=== PATIENT | female | born 1930 | race Caucasian/White ===

== ENCOUNTER 2017-05-15 14:56 | Inpatient (IN) | payer OTHER, MEDICARE ==
[2017-05-15] MEDS: ONDANSETRON 4 MG INJ IV (19:50)
[2017-05-15] MEDS: SOD CHLORIDE 0.9% 1,000 ML IV (19:50)
[2017-05-15 20:05] LABS: ADD MAN DIFF? NO
[2017-05-15 20:07] LABS: WHITE BLOOD COUNT 11.3 10^3/ul (4.8-10.8)
[2017-05-15 20:07] LABS: BASOPHIL # 0.1 10^3/ul (0.0-0.1); BASOPHILS % 1.2 % (0.0-2.0); EOSINOPHILS # 0.2 10^3/ul (0.0-0.5); EOSINOPHILS % 1.8 % (0.0-7.0); HEMATOCRIT 28.3 % (37.0-47.0); HEMOGLOBIN 9.1 g/dl (12.0-16.0); LYMPHOCYTES # 1.3 10^3/ul (0.8-2.9); LYMPHOCYTES % 11.2 % (15.0-51.0); MEAN CORPUSCULAR HEMOGLOBIN 28.1 pg (29.0-33.0); MEAN CORPUSCULAR HGB CONC 32.2 g/dl (32.0-37.0); MEAN CORPUSCULAR VOLUME 87.3 fl (82.0-101.0); MEAN PLATELET VOLUME 10.2 fl (7.4-10.4); MONOCYTE # 0.9 10^3/ul (0.3-0.9); MONOCYTES % 7.6 % (0.0-11.0); NEUTROPHIL # 8.8 10^3/ul (1.6-7.5); NEUTROPHILS % 77.7 % (39.0-77.0); PLATELET COUNT 509 10^3/UL (140-415); RED BLOOD COUNT 3.24 10^6/ul (4.20-5.40); RED CELL DISTRIBUTION WIDTH 14.5 % (11.5-14.5)
[2017-05-15 20:24] LABS: ALANINE AMINOTRANSFERASE 15 IU/L (13-69); ALBUMIN 3.8 g/dl (3.3-4.9); ALKALINE PHOSPHATASE 112 IU/L (42-121); ANION GAP 19 (8-16); ASPARTATE AMINO TRANSFERASE 12 IU/L (15-46); BLOOD UREA NITROGEN 47 mg/dl (7-20); CALCIUM 9.9 mg/dl (8.4-10.2); CARBON DIOXIDE 21 mmol/L (21-31); CHLORIDE 107 mmol/L (97-110); CREATININE 2.38 mg/dl (0.44-1.00); GLUCOSE 106 mg/dl (70-220); LIPASE 121 U/L (23-300); POTASSIUM 5.6 mmol/L (3.5-5.1); SODIUM 141 mmol/L (135-144)
[2017-05-15 20:34] LABS: LACTIC ACID 1.4 mmol/L (0.5-2.0)
[2017-05-16] MEDS ORDERED: ONDANSETRON 4 MG INJ IV
[2017-05-16] MEDS ORDERED: ACETAMINOPHEN 325 MG TAB PO
[2017-05-16] MEDS ORDERED: NACL 0.9% 3 ML SYG IV (00:30)
[2017-05-16] MEDS: SOD CHLORIDE 0.9% 1,000 ML IV ×3 (01:00→20:59)
[2017-05-16] MEDS: NA POLYST SULFON 15 GM/60 ML BTL PO (01:01)
[2017-05-16 02:56] LABS: OSMOLALITY 301 mOsm/kg (280-295)
[2017-05-16 03:15] LABS: SODIUM,URINE RANDOM 106 mmol/L (30-90)
[2017-05-16 04:02] LABS: OSMOLALITY,URINE 330 mOsm/kg (250-1200)
[2017-05-16] MEDS: ONDANSETRON 4 MG INJ IV (04:35)
[2017-05-16 06:11] LABS: ADD MAN DIFF? NO
[2017-05-16 06:13] LABS: BASOPHIL # 0.2 10^3/ul (0.0-0.1); BASOPHILS % 1.4 % (0.0-2.0); EOSINOPHILS # 0.3 10^3/ul (0.0-0.5); EOSINOPHILS % 2.4 % (0.0-7.0); HEMATOCRIT 26.9 % (37.0-47.0); HEMOGLOBIN 8.5 g/dl (12.0-16.0); LYMPHOCYTES # 1.1 10^3/ul (0.8-2.9); LYMPHOCYTES % 10.4 % (15.0-51.0); MEAN CORPUSCULAR HGB CONC 31.6 g/dl (32.0-37.0); MEAN CORPUSCULAR VOLUME 88.5 fl (82.0-101.0); MEAN PLATELET VOLUME 10.2 fl (7.4-10.4); MONOCYTE # 0.9 10^3/ul (0.3-0.9); MONOCYTES % 8.7 % (0.0-11.0); NEUTROPHIL # 8.2 10^3/ul (1.6-7.5); NEUTROPHILS % 76.7 % (39.0-77.0); PLATELET COUNT 517 10^3/UL (140-415); RED BLOOD COUNT 3.04 10^6/ul (4.20-5.40); RED CELL DISTRIBUTION WIDTH 14.7 % (11.5-14.5)
[2017-05-16 06:13] LABS: WHITE BLOOD COUNT 10.6 10^3/ul (4.8-10.8)
[2017-05-16 06:50] LABS: ALANINE AMINOTRANSFERASE 19 IU/L (13-69); ALBUMIN 3.4 g/dl (3.3-4.9); ALBUMIN/GLOBULIN RATIO 0.91; ALKALINE PHOSPHATASE 93 IU/L (42-121); ANION GAP 16 (8-16); ASPARTATE AMINO TRANSFERASE 14 IU/L (15-46); BLOOD UREA NITROGEN 51 mg/dl (7-20); CALCIUM 9.5 mg/dl (8.4-10.2); CARBON DIOXIDE 23 mmol/L (21-31); CHLORIDE 113 mmol/L (97-110); CHOL/HDL RATIO 3.2 RATIO; CHOLESTEROL 100 mg/dl (100-200); CREATININE 2.64 mg/dl (0.44-1.00); GLUCOSE 123 mg/dl (70-220); HDL CHOLESTEROL 31 mg/dl (33-92); LDL CHOLESTEROL,CALCULATED 39 mg/dl; MAGNESIUM 1.5 mg/dl (1.7-2.5); POTASSIUM 4.6 mmol/L (3.5-5.1); SODIUM 147 mmol/L (135-144); TOTAL PROTEIN 7.1 g/dl (6.1-8.1); TRIGLYCERIDES 149 mg/dl (0-149)
[2017-05-16 07:23] LABS: IRON 22 ug/dl (35-150)
[2017-05-16 07:33] LABS: % IRON SATURATION 9 % SAT (22-52); TOTAL IRON BINDING CAPACITY 242 ug/dl (241-421)
[2017-05-16] MEDS: INSULIN ASPART [NOVOLOG] 3 ML PEN SC ×4 (08:15→21:00)
[2017-05-16] MEDS: LORATADINE 10 MG TAB PO (09:00)
[2017-05-16] MEDS: DULOXETINE 30 MG CAP DR PO ×2 (09:22→20:59)
[2017-05-16] MEDS: ATENOLOL 25 MG TAB PO (09:26)
[2017-05-16] MEDS: PANTOPRAZOLE (EC) 40 MG TAB PO (09:29)
[2017-05-16] MEDS: PREGABALIN 25 MG CAP PO ×2 (09:29→20:59)
[2017-05-16 09:42] LABS: HEMOGLOBIN A1C 5.8 % (0-5.9)
[2017-05-16] MEDS: MAGNESIUM OXIDE 400 MG TAB PO ×2 (13:00→20:59)
[2017-05-16] MEDS ORDERED: DIGOXIN 0.125 MG TAB PO (13:00)
[2017-05-16] MEDS: LACTULOSE 30ML CUP PO ×3 (13:01→20:59)
[2017-05-16] MEDS: ATORVASTATIN 10 MG TAB PO (20:59)
[2017-05-17] MEDS: ACCU-CHEK XX (02:00)
[2017-05-17] MEDS: LACTULOSE 30ML CUP PO ×6 (02:00→20:50)
[2017-05-17 06:25] LABS: ADD MAN DIFF? NO
[2017-05-17 06:30] LABS: BASOPHIL # 0.1 10^3/ul (0.0-0.1); BASOPHILS % 1.3 % (0.0-2.0); EOSINOPHILS # 0.2 10^3/ul (0.0-0.5); EOSINOPHILS % 2.3 % (0.0-7.0); HEMATOCRIT 25.4 % (37.0-47.0); HEMOGLOBIN 7.8 g/dl (12.0-16.0); LYMPHOCYTES # 1.3 10^3/ul (0.8-2.9); LYMPHOCYTES % 14.3 % (15.0-51.0); MEAN CORPUSCULAR HEMOGLOBIN 27.5 pg (29.0-33.0); MEAN CORPUSCULAR HGB CONC 30.7 g/dl (32.0-37.0); MEAN CORPUSCULAR VOLUME 89.4 fl (82.0-101.0); MEAN PLATELET VOLUME 10.2 fl (7.4-10.4); MONOCYTES % 10.3 % (0.0-11.0); NEUTROPHIL # 6.6 10^3/ul (1.6-7.5); NEUTROPHILS % 71.5 % (39.0-77.0); PLATELET COUNT 449 10^3/UL (140-415); RED BLOOD COUNT 2.84 10^6/ul (4.20-5.40); RED CELL DISTRIBUTION WIDTH 15.2 % (11.5-14.5)
[2017-05-17 06:30] LABS: WHITE BLOOD COUNT 9.2 10^3/ul (4.8-10.8)
[2017-05-17 07:03] LABS: ANION GAP 13 (8-16); BLOOD UREA NITROGEN 35 mg/dl (7-20); CALCIUM 8.8 mg/dl (8.4-10.2); CARBON DIOXIDE 20 mmol/L (21-31); CHLORIDE 114 mmol/L (97-110); CREATININE 2.04 mg/dl (0.44-1.00); GLUCOSE 127 mg/dl (70-220); POTASSIUM 3.9 mmol/L (3.5-5.1); SODIUM 143 mmol/L (135-144)
[2017-05-17 07:09] LABS: T4 (THYROXINE) 7.3 ug/dl (5.5-11.0)
[2017-05-17 07:09] LABS: FREE T3 2.65 pg/ml (2.77-5.27); INR 1.11; PROTIME 14.5 Sec (11.9-14.9); PT RATIO 1.1
[2017-05-17 07:21] LABS: FREE T4 (FREE THYROXINE) 1.29 ng/dl (0.85-1.93)
[2017-05-17] MEDS: PANTOPRAZOLE (EC) 40 MG TAB PO ×2 (08:00→20:51)
[2017-05-17] MEDS: INSULIN ASPART [NOVOLOG] 3 ML PEN SC ×4 (08:15→20:57)
[2017-05-17] MEDS: DULOXETINE 30 MG CAP DR PO ×2 (08:46→20:50)
[2017-05-17] MEDS: LORATADINE 10 MG TAB PO (08:46)
[2017-05-17] MEDS: PREGABALIN 25 MG CAP PO ×2 (08:46→20:53)
[2017-05-17] MEDS: MAGNESIUM OXIDE 400 MG TAB PO ×2 (08:47→20:51)
[2017-05-17] MEDS: SOD CHLORIDE 0.9% 1,000 ML IV ×2 (09:34→20:21)
[2017-05-17 15:26] LABS: IMMEDIATE SPIN CROSSMATCH 1 3
[2017-05-17 16:31] LABS: CREATININE, RANDOM URINE 71 mg/dL (20-320); MICROALBUMIN 78.3 mg/dL; MICROALBUMIN/CREATININE RATIO 1103 (<30)
[2017-05-17 20:37] LABS: ADD MAN DIFF? NO
[2017-05-17 20:38] LABS: BASOPHIL # 0.1 10^3/ul (0.0-0.1); BASOPHILS % 1.3 % (0.0-2.0); EOSINOPHILS # 0.2 10^3/ul (0.0-0.5); EOSINOPHILS % 1.7 % (0.0-7.0); HEMATOCRIT 29.4 % (37.0-47.0); HEMOGLOBIN 9.4 g/dl (12.0-16.0); LYMPHOCYTES # 0.8 10^3/ul (0.8-2.9); LYMPHOCYTES % 8.4 % (15.0-51.0); MEAN CORPUSCULAR HEMOGLOBIN 28.4 pg (29.0-33.0); MEAN CORPUSCULAR VOLUME 88.8 fl (82.0-101.0); MEAN PLATELET VOLUME 9.9 fl (7.4-10.4); MONOCYTE # 0.9 10^3/ul (0.3-0.9); MONOCYTES % 9.4 % (0.0-11.0); PLATELET COUNT 466 10^3/UL (140-415); RED BLOOD COUNT 3.31 10^6/ul (4.20-5.40); RED CELL DISTRIBUTION WIDTH 14.9 % (11.5-14.5)
[2017-05-17 20:38] LABS: WHITE BLOOD COUNT 10.1 10^3/ul (4.8-10.8)
[2017-05-17] MEDS: ATORVASTATIN 10 MG TAB PO (20:50)
[2017-05-18] MEDS: LACTULOSE 30ML CUP PO ×6 (01:00→21:00)
[2017-05-18] MEDS: ACCU-CHEK XX (02:00)
[2017-05-18 05:46] LABS: ADD MAN DIFF? NO
[2017-05-18 05:56] LABS: BASOPHIL # 0.1 10^3/ul (0.0-0.1); BASOPHILS % 1.3 % (0.0-2.0); EOSINOPHILS # 0.2 10^3/ul (0.0-0.5); EOSINOPHILS % 1.9 % (0.0-7.0); HEMATOCRIT 26.8 % (37.0-47.0); HEMOGLOBIN 8.5 g/dl (12.0-16.0); LYMPHOCYTES % 9.7 % (15.0-51.0); MEAN CORPUSCULAR HEMOGLOBIN 28.1 pg (29.0-33.0); MEAN CORPUSCULAR HGB CONC 31.7 g/dl (32.0-37.0); MEAN CORPUSCULAR VOLUME 88.7 fl (82.0-101.0); MONOCYTE # 0.9 10^3/ul (0.3-0.9); MONOCYTES % 9.6 % (0.0-11.0); NEUTROPHIL # 7.5 10^3/ul (1.6-7.5); PLATELET COUNT 438 10^3/UL (140-415); RED BLOOD COUNT 3.02 10^6/ul (4.20-5.40); RED CELL DISTRIBUTION WIDTH 15.1 % (11.5-14.5)
[2017-05-18 05:56] LABS: WHITE BLOOD COUNT 9.8 10^3/ul (4.8-10.8)
[2017-05-18 06:26] LABS: MAGNESIUM 1.5 mg/dl (1.7-2.5)
[2017-05-18 06:27] LABS: ANION GAP 10 (8-16); BLOOD UREA NITROGEN 23 mg/dl (7-20); CALCIUM 8.6 mg/dl (8.4-10.2); CARBON DIOXIDE 23 mmol/L (21-31); CHLORIDE 116 mmol/L (97-110); CREATININE 1.36 mg/dl (0.44-1.00); GLUCOSE 119 mg/dl (70-220); POTASSIUM 4.3 mmol/L (3.5-5.1); SODIUM 145 mmol/L (135-144)
[2017-05-18] MEDS: INSULIN ASPART [NOVOLOG] 3 ML PEN SC ×4 (08:15→21:00)
[2017-05-18] MEDS: DULOXETINE 30 MG CAP DR PO ×2 (08:47→21:05)
[2017-05-18] MEDS: PANTOPRAZOLE (EC) 40 MG TAB PO ×2 (08:47→21:05)
[2017-05-18] MEDS: MAGNESIUM OXIDE 400 MG TAB PO ×2 (08:47→21:06)
[2017-05-18] MEDS: PREGABALIN 25 MG CAP PO ×2 (08:47→21:06)
[2017-05-18] MEDS: LORATADINE 10 MG TAB PO ×2 (08:48→12:25)
[2017-05-18] MEDS: SOD FERRIC GLUC COMPLX 125 MG in SOD CHLORIDE 0.9% 100 ML IVPB (10:17)
[2017-05-18 11:36] LABS: ADD UMIC YES; UR ASCORBIC ACID NEGATIVE (NEGATIVE); UR BACTERIA FEW /HPF (NONE SEEN); UR BILIRUBIN (Dip) NEGATIVE (NEGATIVE); UR BLOOD (Dip) 3+ mg/dL (NEGATIVE); UR CLARITY TURBID (CLEAR); UR COLOR YELLOW (YELLOW); UR GLUCOSE (Dip) NEGATIVE (NEGATIVE); UR KETONES (Dip) NEGATIVE (NEGATIVE); UR LEUKOCYTE ESTERASE (Dip) 3+ Leu/ul (NEGATIVE); UR NITRITE (Dip) NEGATIVE (NEGATIVE); UR NONSQUAMOUS EPITHELIAL CELL 1 /HPF (NONE SEEN); UR RBC > 182 /HPF (0-5); UR SPECIFIC GRAVITY (Dip) 1.008 (1.003-1.030); UR TOTAL PROTEIN (Dip) 2+ mg/dl (NEGATIVE); UR UROBILINOGEN (Dip) NEGATIVE (NEGATIVE); UR WBC > 182 /HPF (0-5)
[2017-05-18] MEDS: ATENOLOL 25 MG TAB PO (12:28)
[2017-05-18] MEDS: MAGNESIUM SULFATE 2 GM/50 ML 50 ML IVPB (13:00)
[2017-05-18] MEDS: COLLAGENASE 30 GM TUBE TOP (14:30)
[2017-05-18] MEDS: ATORVASTATIN 10 MG TAB PO (21:05)
[2017-05-19] MEDS: LACTULOSE 30ML CUP PO ×6 (01:00→20:50)
[2017-05-19] MEDS: ACCU-CHEK XX (02:00)
[2017-05-19 06:42] LABS: ADD MAN DIFF? NO
[2017-05-19 06:49] LABS: WHITE BLOOD COUNT 8.4 10^3/ul (4.8-10.8)
[2017-05-19 06:49] LABS: BASOPHIL # 0.1 10^3/ul (0.0-0.1); BASOPHILS % 1.6 % (0.0-2.0); EOSINOPHILS # 0.2 10^3/ul (0.0-0.5); EOSINOPHILS % 2.9 % (0.0-7.0); HEMATOCRIT 24.9 % (37.0-47.0); HEMOGLOBIN 8.3 g/dl (12.0-16.0); LYMPHOCYTES # 1.3 10^3/ul (0.8-2.9); LYMPHOCYTES % 15.4 % (15.0-51.0); MEAN CORPUSCULAR HEMOGLOBIN 28.7 pg (29.0-33.0); MEAN CORPUSCULAR HGB CONC 33.3 g/dl (32.0-37.0); MEAN CORPUSCULAR VOLUME 86.2 fl (82.0-101.0); MEAN PLATELET VOLUME 10.1 fl (7.4-10.4); MONOCYTES % 11.5 % (0.0-11.0); NEUTROPHIL # 5.7 10^3/ul (1.6-7.5); NEUTROPHILS % 68.4 % (39.0-77.0); PLATELET COUNT 452 10^3/UL (140-415); RED BLOOD COUNT 2.89 10^6/ul (4.20-5.40); RED CELL DISTRIBUTION WIDTH 15.1 % (11.5-14.5)
[2017-05-19 07:17] LABS: ANION GAP 11 (8-16); BLOOD UREA NITROGEN 18 mg/dl (7-20); CALCIUM 8.7 mg/dl (8.4-10.2); CARBON DIOXIDE 25 mmol/L (21-31); CHLORIDE 111 mmol/L (97-110); CREATININE 1.26 mg/dl (0.44-1.00); GLUCOSE 108 mg/dl (70-220); POTASSIUM 3.8 mmol/L (3.5-5.1); SODIUM 143 mmol/L (135-144)
[2017-05-19] MEDS: INSULIN ASPART [NOVOLOG] 3 ML PEN SC ×4 (08:15→20:54)
[2017-05-19] MEDS: MAGNESIUM OXIDE 400 MG TAB PO ×2 (09:21→20:50)
[2017-05-19] MEDS: LORATADINE 10 MG TAB PO (09:21)
[2017-05-19] MEDS: PANTOPRAZOLE (EC) 40 MG TAB PO ×2 (09:21→20:50)
[2017-05-19] MEDS: DULOXETINE 30 MG CAP DR PO ×2 (09:21→20:50)
[2017-05-19] MEDS: PREGABALIN 25 MG CAP PO ×2 (09:21→20:50)
[2017-05-19] MEDS: COLLAGENASE 30 GM TUBE TOP (09:22)
[2017-05-19] MEDS: ATENOLOL 25 MG TAB PO (09:22)
[2017-05-19] MEDS: SOD FERRIC GLUC COMPLX 125 MG in SOD CHLORIDE 0.9% 100 ML IVPB (10:57)
[2017-05-19 18:33] LABS: OCCULT BLOOD STOOL NEGATIVE (NEGATIVE)
[2017-05-19] MEDS: ATORVASTATIN 10 MG TAB PO (20:50)
[2017-05-20] MEDS: LACTULOSE 30ML CUP PO ×6 (01:00→20:11)
[2017-05-20] MEDS: ACCU-CHEK XX ×2 (02:00→20:16)
[2017-05-20 06:27] LABS: ADD MAN DIFF? NO
[2017-05-20 06:37] LABS: WHITE BLOOD COUNT 8.5 10^3/ul (4.8-10.8)
[2017-05-20 06:37] LABS: BASOPHIL # 0.2 10^3/ul (0.0-0.1); BASOPHILS % 1.9 % (0.0-2.0); EOSINOPHILS # 0.3 10^3/ul (0.0-0.5); EOSINOPHILS % 2.9 % (0.0-7.0); HEMATOCRIT 25.7 % (37.0-47.0); HEMOGLOBIN 8.4 g/dl (12.0-16.0); LYMPHOCYTES # 1.4 10^3/ul (0.8-2.9); MEAN CORPUSCULAR HEMOGLOBIN 28.6 pg (29.0-33.0); MEAN CORPUSCULAR HGB CONC 32.7 g/dl (32.0-37.0); MEAN CORPUSCULAR VOLUME 87.4 fl (82.0-101.0); MEAN PLATELET VOLUME 10.1 fl (7.4-10.4); MONOCYTE # 1.1 10^3/ul (0.3-0.9); MONOCYTES % 12.9 % (0.0-11.0); NEUTROPHIL # 5.6 10^3/ul (1.6-7.5); NEUTROPHILS % 65.8 % (39.0-77.0); PLATELET COUNT 461 10^3/UL (140-415); RED BLOOD COUNT 2.94 10^6/ul (4.20-5.40); RED CELL DISTRIBUTION WIDTH 15.5 % (11.5-14.5)
[2017-05-20 06:54] LABS: ANION GAP 14 (8-16); BLOOD UREA NITROGEN 18 mg/dl (7-20); CARBON DIOXIDE 26 mmol/L (21-31); CHLORIDE 111 mmol/L (97-110); CREATININE 1.26 mg/dl (0.44-1.00); GLUCOSE 110 mg/dl (70-220); POTASSIUM 4.1 mmol/L (3.5-5.1); SODIUM 147 mmol/L (135-144)
[2017-05-20] MEDS: INSULIN ASPART [NOVOLOG] 3 ML PEN SC ×4 (07:58→20:16)
[2017-05-20] MEDS: DULOXETINE 30 MG CAP DR PO ×2 (09:06→20:10)
[2017-05-20] MEDS: ATENOLOL 25 MG TAB PO (09:06)
[2017-05-20] MEDS: PREGABALIN 25 MG CAP PO ×2 (09:07→20:13)
[2017-05-20] MEDS: PANTOPRAZOLE (EC) 40 MG TAB PO ×2 (09:07→20:10)
[2017-05-20] MEDS: LORATADINE 10 MG TAB PO (09:07)
[2017-05-20] MEDS: MAGNESIUM OXIDE 400 MG TAB PO ×2 (09:07→20:11)
[2017-05-20] MEDS: COLLAGENASE 30 GM TUBE TOP (09:08)
[2017-05-20] MEDS: SOD FERRIC GLUC COMPLX 125 MG in SOD CHLORIDE 0.9% 100 ML IVPB (10:42)
[2017-05-20] MEDS: TRIMETHOPRIM/SULFAMETHOX (DS) TAB PO ×2 (11:30→20:10)
[2017-05-20] MEDS: FOSFOMYCIN 3 GM PACKET PO (11:47)
[2017-05-20] MEDS: ATORVASTATIN 10 MG TAB PO (20:11)
[2017-05-21] MEDS: LACTULOSE 30ML CUP PO ×6 (01:00→21:00)
[2017-05-21 05:58] LABS: ADD UMIC YES; UR ASCORBIC ACID NEGATIVE (NEGATIVE); UR BACTERIA FEW /HPF (NONE SEEN); UR BILIRUBIN (Dip) NEGATIVE (NEGATIVE); UR BLOOD (Dip) 3+ mg/dL (NEGATIVE); UR CLARITY CLOUDY (CLEAR); UR COLOR YELLOW (YELLOW); UR GLUCOSE (Dip) 1+ mg/dL (NEGATIVE); UR KETONES (Dip) NEGATIVE (NEGATIVE); UR LEUKOCYTE ESTERASE (Dip) 3+ Leu/ul (NEGATIVE); UR NITRITE (Dip) NEGATIVE (NEGATIVE); UR RBC > 182 /HPF (0-5); UR SQUAMOUS EPITHELIAL CELL FEW /HPF (FEW); UR TOTAL PROTEIN (Dip) 2+ mg/dl (NEGATIVE); UR UROBILINOGEN (Dip) NEGATIVE (NEGATIVE); UR WBC > 182 /HPF (0-5)
[2017-05-21 06:16] LABS: ADD MAN DIFF? NO
[2017-05-21 06:26] LABS: ABNORMAL IP MESSAGE 1; BASOPHIL # 0.2 10^3/ul (0.0-0.1); BASOPHILS % 1.5 % (0.0-2.0); EOSINOPHILS # 0.3 10^3/ul (0.0-0.5); EOSINOPHILS % 2.3 % (0.0-7.0); HEMATOCRIT 28.3 % (37.0-47.0); LYMPHOCYTES # 1.8 10^3/ul (0.8-2.9); LYMPHOCYTES % 16.8 % (15.0-51.0); MEAN CORPUSCULAR HEMOGLOBIN 28.1 pg (29.0-33.0); MEAN CORPUSCULAR HGB CONC 31.8 g/dl (32.0-37.0); MEAN CORPUSCULAR VOLUME 88.4 fl (82.0-101.0); MONOCYTE # 1.5 10^3/ul (0.3-0.9); MONOCYTES % 13.9 % (0.0-11.0); NEUTROPHIL # 7.1 10^3/ul (1.6-7.5); PLATELET COUNT 500 10^3/UL (140-415); RED CELL DISTRIBUTION WIDTH 15.7 % (11.5-14.5)
[2017-05-21 06:30] LABS: POSITIVE DIFF @See below
[2017-05-21 06:47] LABS: ANION GAP 13 (8-16); BLOOD UREA NITROGEN 21 mg/dl (7-20); CALCIUM 9.3 mg/dl (8.4-10.2); CARBON DIOXIDE 28 mmol/L (21-31); CHLORIDE 106 mmol/L (97-110); CREATININE 1.38 mg/dl (0.44-1.00); GLUCOSE 126 mg/dl (70-220); POTASSIUM 4.1 mmol/L (3.5-5.1); SODIUM 143 mmol/L (135-144)
[2017-05-21] MEDS: INSULIN ASPART [NOVOLOG] 3 ML PEN SC ×4 (08:02→21:13)
[2017-05-21] MEDS: DULOXETINE 30 MG CAP DR PO ×2 (09:06→21:01)
[2017-05-21] MEDS: LORATADINE 10 MG TAB PO (09:06)
[2017-05-21] MEDS: TRIMETHOPRIM/SULFAMETHOX (DS) TAB PO ×2 (09:06→21:01)
[2017-05-21] MEDS: MAGNESIUM OXIDE 400 MG TAB PO ×2 (09:07→21:01)
[2017-05-21] MEDS: PREGABALIN 25 MG CAP PO ×2 (09:07→21:01)
[2017-05-21] MEDS: COLLAGENASE 30 GM TUBE TOP (09:08)
[2017-05-21] MEDS: PANTOPRAZOLE (EC) 40 MG TAB PO ×2 (09:08→21:01)
[2017-05-21] MEDS: ATENOLOL 25 MG TAB PO (09:08)
[2017-05-21] MEDS: ATORVASTATIN 10 MG TAB PO (21:01)
[2017-05-22] MEDS: LACTULOSE 30ML CUP PO ×6 (01:00→21:02)
[2017-05-22] MEDS: ACCU-CHEK XX (02:00)
[2017-05-22 06:03] LABS: ADD MAN DIFF? NO
[2017-05-22 06:15] LABS: WHITE BLOOD COUNT 9.1 10^3/ul (4.8-10.8)
[2017-05-22 06:15] LABS: BASOPHIL # 0.1 10^3/ul (0.0-0.1); BASOPHILS % 1.4 % (0.0-2.0); EOSINOPHILS # 0.2 10^3/ul (0.0-0.5); EOSINOPHILS % 2.5 % (0.0-7.0); HEMATOCRIT 23.6 % (37.0-47.0); HEMOGLOBIN 7.8 g/dl (12.0-16.0); LYMPHOCYTES # 1.4 10^3/ul (0.8-2.9); LYMPHOCYTES % 15.6 % (15.0-51.0); MEAN CORPUSCULAR HEMOGLOBIN 28.6 pg (29.0-33.0); MEAN CORPUSCULAR HGB CONC 33.1 g/dl (32.0-37.0); MEAN CORPUSCULAR VOLUME 86.4 fl (82.0-101.0); MONOCYTE # 1.2 10^3/ul (0.3-0.9); MONOCYTES % 13.6 % (0.0-11.0); NEUTROPHIL # 6.1 10^3/ul (1.6-7.5); NEUTROPHILS % 66.6 % (39.0-77.0); PLATELET COUNT 431 10^3/UL (140-415); RED BLOOD COUNT 2.73 10^6/ul (4.20-5.40); RED CELL DISTRIBUTION WIDTH 15.9 % (11.5-14.5)
[2017-05-22 06:37] LABS: BLOOD UREA NITROGEN 27 mg/dl (7-20); CALCIUM 9.3 mg/dl (8.4-10.2); CARBON DIOXIDE 28 mmol/L (21-31); CHLORIDE 105 mmol/L (97-110); GLUCOSE 129 mg/dl (70-220); SODIUM 140 mmol/L (135-144)
[2017-05-22 07:34] LABS: ANION GAP 11 (8-16)
[2017-05-22 07:35] LABS: POTASSIUM 4.2 mmol/L (3.5-5.1)
[2017-05-22] MEDS: INSULIN ASPART [NOVOLOG] 3 ML PEN SC ×4 (08:15→21:00)
[2017-05-22] MEDS: TRIMETHOPRIM/SULFAMETHOX (DS) TAB PO (08:51)
[2017-05-22] MEDS: LORATADINE 10 MG TAB PO (08:51)
[2017-05-22] MEDS: ATENOLOL 25 MG TAB PO (08:52)
[2017-05-22] MEDS: COLLAGENASE 30 GM TUBE TOP (08:52)
[2017-05-22] MEDS: DULOXETINE 30 MG CAP DR PO ×2 (08:52→21:02)
[2017-05-22] MEDS: PANTOPRAZOLE (EC) 40 MG TAB PO ×2 (08:52→21:02)
[2017-05-22] MEDS: MAGNESIUM OXIDE 400 MG TAB PO ×2 (08:52→21:02)
[2017-05-22] MEDS: PREGABALIN 25 MG CAP PO ×2 (08:54→21:03)
[2017-05-22] MEDS: ACETAMINOPHEN 325 MG TAB PO (11:49)
[2017-05-22 14:27] LABS: IMMEDIATE SPIN CROSSMATCH 1 2
[2017-05-22 18:12] LABS: ADD MAN DIFF? NO
[2017-05-22 18:17] LABS: BASOPHIL # 0.1 10^3/ul (0.0-0.1); BASOPHILS % 1.4 % (0.0-2.0); EOSINOPHILS # 0.3 10^3/ul (0.0-0.5); HEMATOCRIT 32.7 % (37.0-47.0); HEMOGLOBIN 10.8 g/dl (12.0-16.0); LYMPHOCYTES # 1.3 10^3/ul (0.8-2.9); LYMPHOCYTES % 13.6 % (15.0-51.0); MEAN CORPUSCULAR HEMOGLOBIN 28.8 pg (29.0-33.0); MEAN CORPUSCULAR VOLUME 87.2 fl (82.0-101.0); MEAN PLATELET VOLUME 9.8 fl (7.4-10.4); MONOCYTE # 1.3 10^3/ul (0.3-0.9); MONOCYTES % 13.2 % (0.0-11.0); NEUTROPHIL # 6.5 10^3/ul (1.6-7.5); NEUTROPHILS % 68.2 % (39.0-77.0); PLATELET COUNT 428 10^3/UL (140-415); RED BLOOD COUNT 3.75 10^6/ul (4.20-5.40)
[2017-05-22 18:17] LABS: WHITE BLOOD COUNT 9.5 10^3/ul (4.8-10.8)
[2017-05-22] MEDS: ATORVASTATIN 10 MG TAB PO (21:02)
[2017-05-23] MEDS: LACTULOSE 30ML CUP PO ×6 (01:00→20:56)
[2017-05-23] MEDS: ACETAMINOPHEN 325 MG TAB PO (01:38)
[2017-05-23] MEDS: ACCU-CHEK XX (02:00)
[2017-05-23 06:09] LABS: ADD MAN DIFF? NO
[2017-05-23 06:18] LABS: WHITE BLOOD COUNT 8.8 10^3/ul (4.8-10.8)
[2017-05-23 06:18] LABS: BASOPHIL # 0.1 10^3/ul (0.0-0.1); BASOPHILS % 1.5 % (0.0-2.0); EOSINOPHILS # 0.4 10^3/ul (0.0-0.5); EOSINOPHILS % 4.2 % (0.0-7.0); HEMATOCRIT 29.6 % (37.0-47.0); HEMOGLOBIN 9.7 g/dl (12.0-16.0); LYMPHOCYTES # 1.2 10^3/ul (0.8-2.9); LYMPHOCYTES % 13.8 % (15.0-51.0); MEAN CORPUSCULAR HEMOGLOBIN 28.3 pg (29.0-33.0); MEAN CORPUSCULAR HGB CONC 32.8 g/dl (32.0-37.0); MEAN CORPUSCULAR VOLUME 86.3 fl (82.0-101.0); MONOCYTE # 1.2 10^3/ul (0.3-0.9); MONOCYTES % 13.1 % (0.0-11.0); NEUTROPHIL # 5.9 10^3/ul (1.6-7.5); NEUTROPHILS % 66.8 % (39.0-77.0); PLATELET COUNT 395 10^3/UL (140-415); RED BLOOD COUNT 3.43 10^6/ul (4.20-5.40); RED CELL DISTRIBUTION WIDTH 15.7 % (11.5-14.5)
[2017-05-23 07:03] LABS: ALANINE AMINOTRANSFERASE 17 IU/L (13-69); ALBUMIN 2.9 g/dl (3.3-4.9); ALBUMIN/GLOBULIN RATIO 0.78; ALKALINE PHOSPHATASE 72 IU/L (42-121); ANION GAP 12 (8-16); ASPARTATE AMINO TRANSFERASE 17 IU/L (15-46); BLOOD UREA NITROGEN 32 mg/dl (7-20); CALCIUM 9.3 mg/dl (8.4-10.2); CARBON DIOXIDE 27 mmol/L (21-31); CHLORIDE 107 mmol/L (97-110); CREATININE 1.49 mg/dl (0.44-1.00); GLUCOSE 108 mg/dl (70-220); POTASSIUM 3.9 mmol/L (3.5-5.1); SODIUM 142 mmol/L (135-144); TOTAL PROTEIN 6.6 g/dl (6.1-8.1)
[2017-05-23] MEDS: INSULIN ASPART [NOVOLOG] 3 ML PEN SC ×4 (07:45→20:54)
[2017-05-23] MEDS: LORATADINE 10 MG TAB PO (09:31)
[2017-05-23] MEDS: DULOXETINE 30 MG CAP DR PO ×2 (09:31→20:54)
[2017-05-23] MEDS: PANTOPRAZOLE (EC) 40 MG TAB PO ×2 (09:32→20:54)
[2017-05-23] MEDS: PREGABALIN 25 MG CAP PO ×2 (09:32→20:55)
[2017-05-23] MEDS: MAGNESIUM OXIDE 400 MG TAB PO ×2 (09:32→20:55)
[2017-05-23] MEDS: ATENOLOL 25 MG TAB PO (09:33)
[2017-05-23] MEDS: COLLAGENASE 30 GM TUBE TOP (09:33)
[2017-05-23] MEDS: TRIMETHOPRIM/SULFAMETHOX (DS) TAB PO (09:35)
[2017-05-23] MEDS ORDERED: AMIKACIN IV PER PHARMACY XX (15:00)
[2017-05-23] MEDS: CEFEPIME 1GM/50 ML IVPB (15:46)
[2017-05-23] MEDS: ATORVASTATIN 10 MG TAB PO (20:54)
[2017-05-24] MEDS: LACTULOSE 30ML CUP PO ×6 (01:00→21:00)
[2017-05-24] MEDS: ACCU-CHEK XX (01:55)
[2017-05-24 06:09] LABS: ADD MAN DIFF? NO
[2017-05-24 06:43] LABS: WHITE BLOOD COUNT 9.7 10^3/ul (4.8-10.8)
[2017-05-24 06:43] LABS: BASOPHIL # 0.1 10^3/ul (0.0-0.1); BASOPHILS % 1.2 % (0.0-2.0); EOSINOPHILS # 0.4 10^3/ul (0.0-0.5); EOSINOPHILS % 3.8 % (0.0-7.0); HEMATOCRIT 30.6 % (37.0-47.0); LYMPHOCYTES # 1.3 10^3/ul (0.8-2.9); LYMPHOCYTES % 12.9 % (15.0-51.0); MEAN CORPUSCULAR HEMOGLOBIN 28.7 pg (29.0-33.0); MEAN CORPUSCULAR HGB CONC 32.7 g/dl (32.0-37.0); MEAN CORPUSCULAR VOLUME 87.9 fl (82.0-101.0); MEAN PLATELET VOLUME 10.1 fl (7.4-10.4); MONOCYTE # 1.3 10^3/ul (0.3-0.9); NEUTROPHIL # 6.7 10^3/ul (1.6-7.5); NEUTROPHILS % 68.7 % (39.0-77.0); PLATELET COUNT 393 10^3/UL (140-415); RED BLOOD COUNT 3.48 10^6/ul (4.20-5.40); RED CELL DISTRIBUTION WIDTH 15.4 % (11.5-14.5)
[2017-05-24] MEDS: INSULIN ASPART [NOVOLOG] 3 ML PEN SC ×4 (08:00→21:00)
[2017-05-24] MEDS: DULOXETINE 30 MG CAP DR PO ×2 (09:05→21:04)
[2017-05-24] MEDS: LORATADINE 10 MG TAB PO (09:05)
[2017-05-24] MEDS: MAGNESIUM OXIDE 400 MG TAB PO ×2 (09:06→21:04)
[2017-05-24] MEDS: ATENOLOL 25 MG TAB PO (09:06)
[2017-05-24] MEDS: PANTOPRAZOLE (EC) 40 MG TAB PO (09:06)
[2017-05-24] MEDS: PREGABALIN 25 MG CAP PO ×2 (09:06→21:04)
[2017-05-24] MEDS: COLLAGENASE 30 GM TUBE TOP (09:07)
[2017-05-24] MEDS: CEFEPIME 1GM/50 ML IVPB (15:34)
[2017-05-24] MEDS: ATORVASTATIN 10 MG TAB PO (21:04)
[2017-05-25] MEDS: LACTULOSE 30ML CUP PO ×6 (00:37→21:00)
[2017-05-25] MEDS: ACCU-CHEK XX (01:54)
[2017-05-25 05:48] LABS: ADD MAN DIFF? NO
[2017-05-25 05:59] LABS: BASOPHIL # 0.1 10^3/ul (0.0-0.1); BASOPHILS % 1.3 % (0.0-2.0); EOSINOPHILS # 0.3 10^3/ul (0.0-0.5); HEMATOCRIT 28.9 % (37.0-47.0); HEMOGLOBIN 9.5 g/dl (12.0-16.0); LYMPHOCYTES # 1.2 10^3/ul (0.8-2.9); LYMPHOCYTES % 12.9 % (15.0-51.0); MEAN CORPUSCULAR HGB CONC 32.9 g/dl (32.0-37.0); MEAN CORPUSCULAR VOLUME 88.1 fl (82.0-101.0); MEAN PLATELET VOLUME 9.8 fl (7.4-10.4); MONOCYTE # 1.5 10^3/ul (0.3-0.9); MONOCYTES % 15.4 % (0.0-11.0); NEUTROPHIL # 6.4 10^3/ul (1.6-7.5); PLATELET COUNT 349 10^3/UL (140-415); RED BLOOD COUNT 3.28 10^6/ul (4.20-5.40); RED CELL DISTRIBUTION WIDTH 15.7 % (11.5-14.5)
[2017-05-25 05:59] LABS: WHITE BLOOD COUNT 9.5 10^3/ul (4.8-10.8)
[2017-05-25] MEDS: INSULIN ASPART [NOVOLOG] 3 ML PEN SC ×4 (08:02→21:00)
[2017-05-25] MEDS: LORATADINE 10 MG TAB PO (08:17)
[2017-05-25] MEDS: MAGNESIUM OXIDE 400 MG TAB PO ×2 (08:17→20:44)
[2017-05-25] MEDS: DULOXETINE 30 MG CAP DR PO ×2 (08:17→20:44)
[2017-05-25] MEDS: PREGABALIN 25 MG CAP PO ×2 (08:19→20:45)
[2017-05-25] MEDS: COLLAGENASE 30 GM TUBE TOP (08:20)
[2017-05-25] MEDS: ATENOLOL 25 MG TAB PO (08:20)
[2017-05-25] MEDS: CEFEPIME 1GM/50 ML IVPB (15:26)
[2017-05-25] MEDS: ATORVASTATIN 10 MG TAB PO (20:44)
[2017-05-25] MEDS: ACETAMINOPHEN 325 MG TAB PO (20:45)
[2017-05-26] MEDS: LACTULOSE 30ML CUP PO ×6 (01:00→20:40)
[2017-05-26] MEDS: ACCU-CHEK XX (02:00)
[2017-05-26] MEDS: INSULIN ASPART [NOVOLOG] 3 ML PEN SC ×4 (08:14→20:40)
[2017-05-26] MEDS: LORATADINE 10 MG TAB PO (08:47)
[2017-05-26] MEDS: PREGABALIN 25 MG CAP PO ×2 (08:47→20:40)
[2017-05-26] MEDS: ACETAMINOPHEN 325 MG TAB PO ×2 (08:47→20:40)
[2017-05-26] MEDS: MAGNESIUM OXIDE 400 MG TAB PO ×2 (08:47→20:40)
[2017-05-26] MEDS: DULOXETINE 30 MG CAP DR PO ×2 (08:47→20:40)
[2017-05-26] MEDS: ATENOLOL 25 MG TAB PO (08:48)
[2017-05-26] MEDS: COLLAGENASE 30 GM TUBE TOP (08:50)
[2017-05-26] MEDS: CEFEPIME 1GM/50 ML IVPB (16:31)
[2017-05-26] MEDS: ATORVASTATIN 10 MG TAB PO (20:39)
[2017-05-27] MEDS: LACTULOSE 30ML CUP PO ×7 (00:32→21:58)
[2017-05-27] MEDS: ACCU-CHEK XX (01:06)
[2017-05-27] MEDS: INSULIN ASPART [NOVOLOG] 3 ML PEN SC ×4 (08:15→20:23)
[2017-05-27] MEDS: MAGNESIUM OXIDE 400 MG TAB PO ×2 (08:40→20:19)
[2017-05-27] MEDS: ATENOLOL 25 MG TAB PO (08:40)
[2017-05-27] MEDS: LORATADINE 10 MG TAB PO (08:40)
[2017-05-27] MEDS: DULOXETINE 30 MG CAP DR PO ×2 (08:40→20:19)
[2017-05-27] MEDS: PREGABALIN 25 MG CAP PO ×2 (08:43→20:19)
[2017-05-27] MEDS: COLLAGENASE 30 GM TUBE TOP (08:45)
[2017-05-27] MEDS: ACETAMINOPHEN 325 MG TAB PO ×2 (08:50→21:58)
[2017-05-27] MEDS: CEFEPIME 1GM/50 ML IVPB (17:07)
[2017-05-27 18:10] LABS: ADD UMIC YES; UR ASCORBIC ACID NEGATIVE (NEGATIVE); UR BACTERIA FEW /HPF (NONE SEEN); UR BILIRUBIN (Dip) NEGATIVE (NEGATIVE); UR BLOOD (Dip) 2+ mg/dL (NEGATIVE); UR CLARITY CLOUDY (CLEAR); UR COLOR RED (YELLOW); UR GLUCOSE (Dip) NEGATIVE (NEGATIVE); UR KETONES (Dip) NEGATIVE (NEGATIVE); UR LEUKOCYTE ESTERASE (Dip) TRACE Leu/ul (NEGATIVE); UR NITRITE (Dip) NEGATIVE (NEGATIVE); UR RBC > 182 /HPF (0-5); UR SPECIFIC GRAVITY (Dip) 1.011 (1.003-1.030); UR TOTAL PROTEIN (Dip) 2+ mg/dl (NEGATIVE); UR UROBILINOGEN (Dip) NEGATIVE (NEGATIVE); UR WBC > 182 /HPF (0-5)
[2017-05-27] MEDS: ATORVASTATIN 10 MG TAB PO (20:19)
[2017-05-28] MEDS: LACTULOSE 30ML CUP PO ×6 (01:00→21:00)
[2017-05-28] MEDS: ACCU-CHEK XX ×2 (02:00→21:14)
[2017-05-28 05:53] LABS: ADD MAN DIFF? NO
[2017-05-28 06:01] LABS: BASOPHIL # 0.2 10^3/ul (0.0-0.1); BASOPHILS % 2.2 % (0.0-2.0); EOSINOPHILS # 0.4 10^3/ul (0.0-0.5); EOSINOPHILS % 4.5 % (0.0-7.0); HEMATOCRIT 29.9 % (37.0-47.0); HEMOGLOBIN 9.5 g/dl (12.0-16.0); LYMPHOCYTES # 1.4 10^3/ul (0.8-2.9); LYMPHOCYTES % 16.8 % (15.0-51.0); MEAN CORPUSCULAR HEMOGLOBIN 28.3 pg (29.0-33.0); MEAN CORPUSCULAR HGB CONC 31.8 g/dl (32.0-37.0); MEAN PLATELET VOLUME 10.1 fl (7.4-10.4); MONOCYTE # 0.8 10^3/ul (0.3-0.9); MONOCYTES % 9.3 % (0.0-11.0); NEUTROPHIL # 5.4 10^3/ul (1.6-7.5); NEUTROPHILS % 67.1 % (39.0-77.0); PLATELET COUNT 348 10^3/UL (140-415); RED BLOOD COUNT 3.36 10^6/ul (4.20-5.40)
[2017-05-28 06:01] LABS: WHITE BLOOD COUNT 8.1 10^3/ul (4.8-10.8)
[2017-05-28] MEDS: INSULIN ASPART [NOVOLOG] 3 ML PEN SC ×4 (08:05→21:00)
[2017-05-28] MEDS: ATENOLOL 25 MG TAB PO (08:55)
[2017-05-28] MEDS: LORATADINE 10 MG TAB PO (08:56)
[2017-05-28] MEDS: MAGNESIUM OXIDE 400 MG TAB PO ×2 (08:57→21:10)
[2017-05-28] MEDS: DULOXETINE 30 MG CAP DR PO ×2 (08:57→21:10)
[2017-05-28] MEDS: COLLAGENASE 30 GM TUBE TOP (09:00)
[2017-05-28] MEDS: PREGABALIN 25 MG CAP PO ×2 (09:02→21:11)
[2017-05-28] MEDS: CEFEPIME 1GM/50 ML IVPB (16:10)
[2017-05-28] MEDS: ACETAMINOPHEN 325 MG TAB PO (21:10)
[2017-05-28] MEDS: ATORVASTATIN 10 MG TAB PO (21:10)
[2017-05-29] MEDS: LACTULOSE 30ML CUP PO ×7 (01:00→23:17)
[2017-05-29] MEDS ORDERED: EPHEDrine SULFATE 50 MG/5 ML SYG (07:00)
[2017-05-29] MEDS: INSULIN ASPART [NOVOLOG] 3 ML PEN SC ×4 (08:15→21:00)
[2017-05-29] MEDS: LORATADINE 10 MG TAB PO (09:00)
[2017-05-29] MEDS: ATENOLOL 25 MG TAB PO (09:00)
[2017-05-29] MEDS: DULOXETINE 30 MG CAP DR PO ×2 (09:00→22:46)
[2017-05-29] MEDS: COLLAGENASE 30 GM TUBE TOP (09:00)
[2017-05-29] MEDS: PREGABALIN 25 MG CAP PO ×2 (09:00→22:47)
[2017-05-29] MEDS: MAGNESIUM OXIDE 400 MG TAB PO ×2 (09:00→22:46)
[2017-05-29] MEDS: CEFEPIME 1GM/50 ML IVPB (15:10)
[2017-05-29] MEDS ORDERED: FAMOTIDINE 20 MG INJ (17:33)
[2017-05-29] MEDS ORDERED: ONDANSETRON 4 MG INJ (17:33)
[2017-05-29] MEDS ORDERED: PROPOFOL 20 ML (17:33)
[2017-05-29] MEDS ORDERED: LIDOCAINE 2% (SDV) 5 ML INJ (17:33)
[2017-05-29] MEDS ORDERED: MIDAZOLAM 1 MG/ML 2 ML INJ (17:55)
[2017-05-29] MEDS ORDERED: DIPHENHYDRAMINE 50 MG INJ IV (18:00)
[2017-05-29] MEDS ORDERED: ONDANSETRON 4 MG INJ IV (18:00)
[2017-05-29] MEDS ORDERED: HYDROmorphONE (0.2 MG/ML) 10ML SYG IV ×2 (18:00)
[2017-05-29] MEDS ORDERED: MEPERIDINE 25 MG INJ IV (18:00)
[2017-05-29] MEDS ORDERED: FENTAnyl 50 MCG/ML VIAL (18:03)
[2017-05-29] MEDS: IOHEXOL 300MG/ML 30 ML BTL (18:13)
[2017-05-29] MEDS ORDERED: hydrALAzine 20 MG INJ (21:28)
[2017-05-29] MEDS: hydrALAzine 20 MG INJ IV (21:37)
[2017-05-29] MEDS: FENTAnyl 50 MCG/ML VIAL IV (22:08)
[2017-05-29] MEDS: ATORVASTATIN 10 MG TAB PO (22:46)
[2017-05-30] MEDS: ACCU-CHEK XX (02:00)
[2017-05-30] MEDS: ACETAMINOPHEN 325 MG TAB PO (02:36)
[2017-05-30 05:52] LABS: ADD MAN DIFF? NO
[2017-05-30 06:07] LABS: WHITE BLOOD COUNT 10.3 10^3/ul (4.8-10.8)
[2017-05-30 06:07] LABS: BASOPHIL # 0.2 10^3/ul (0.0-0.1); BASOPHILS % 1.6 % (0.0-2.0); EOSINOPHILS # 0.2 10^3/ul (0.0-0.5); EOSINOPHILS % 1.7 % (0.0-7.0); HEMOGLOBIN 9.5 g/dl (12.0-16.0); LYMPHOCYTES # 0.9 10^3/ul (0.8-2.9); MEAN CORPUSCULAR HEMOGLOBIN 28.4 pg (29.0-33.0); MEAN CORPUSCULAR HGB CONC 30.6 g/dl (32.0-37.0); MEAN CORPUSCULAR VOLUME 92.8 fl (82.0-101.0); MEAN PLATELET VOLUME 10.2 fl (7.4-10.4); MONOCYTE # 0.9 10^3/ul (0.3-0.9); MONOCYTES % 8.2 % (0.0-11.0); NEUTROPHIL # 8.2 10^3/ul (1.6-7.5); NEUTROPHILS % 79.2 % (39.0-77.0); PLATELET COUNT 383 10^3/UL (140-415); RED BLOOD COUNT 3.34 10^6/ul (4.20-5.40); RED CELL DISTRIBUTION WIDTH 14.6 % (11.5-14.5)
[2017-05-30 06:44] LABS: ANION GAP 10 (8-16); BLOOD UREA NITROGEN 25 mg/dl (7-20); CARBON DIOXIDE 33 mmol/L (21-31); CHLORIDE 107 mmol/L (97-110); CREATININE 1.35 mg/dl (0.44-1.00); GLUCOSE 141 mg/dl (70-220); POTASSIUM 4.5 mmol/L (3.5-5.1); SODIUM 145 mmol/L (135-144)
[2017-05-30] MEDS: LACTULOSE 30ML CUP PO ×5 (06:48→21:16)
[2017-05-30] MEDS: INSULIN ASPART [NOVOLOG] 3 ML PEN SC ×4 (07:54→21:00)
[2017-05-30] MEDS: DULOXETINE 30 MG CAP DR PO ×2 (09:18→21:16)
[2017-05-30] MEDS: MAGNESIUM OXIDE 400 MG TAB PO ×2 (09:19→21:16)
[2017-05-30] MEDS: ATENOLOL 25 MG TAB PO (09:19)
[2017-05-30] MEDS: LORATADINE 10 MG TAB PO (09:19)
[2017-05-30] MEDS: PREGABALIN 25 MG CAP PO ×2 (09:19→21:16)
[2017-05-30] MEDS: COLLAGENASE 30 GM TUBE TOP (09:20)
[2017-05-30] MEDS: CEFEPIME 1GM/50 ML IVPB (15:43)
[2017-05-30] MEDS: ATORVASTATIN 10 MG TAB PO (21:16)
[2017-05-31] MEDS: LACTULOSE 30ML CUP PO ×6 (01:00→21:00)
[2017-05-31] MEDS: ACCU-CHEK XX (01:47)
[2017-05-31] MEDS: INSULIN ASPART [NOVOLOG] 3 ML PEN SC ×4 (08:10→21:00)
[2017-05-31] MEDS: PREGABALIN 25 MG CAP PO ×2 (08:36→21:13)
[2017-05-31] MEDS: MAGNESIUM OXIDE 400 MG TAB PO ×2 (08:36→21:13)
[2017-05-31] MEDS: ATENOLOL 25 MG TAB PO (08:37)
[2017-05-31] MEDS: DULOXETINE 30 MG CAP DR PO ×2 (08:37→21:13)
[2017-05-31] MEDS: LORATADINE 10 MG TAB PO (08:37)
[2017-05-31] MEDS: COLLAGENASE 30 GM TUBE TOP (08:44)
[2017-05-31] MEDS: CEFEPIME 1GM/50 ML IVPB (16:05)
[2017-05-31] MEDS: ATORVASTATIN 10 MG TAB PO (21:13)
[2017-05-31] MEDS: HYDROCODONE/APAP (5/325) TAB PO (21:54)
[2017-05-31] MEDS: ONDANSETRON 4 MG INJ IV (21:54)
[2017-06-01] MEDS: LACTULOSE 30ML CUP PO ×6 (01:00→20:51)
[2017-06-01] MEDS: ACCU-CHEK XX (01:08)
[2017-06-01 06:11] LABS: ADD MAN DIFF? NO
[2017-06-01 06:30] LABS: BASOPHIL # 0.1 10^3/ul (0.0-0.1); BASOPHILS % 1.3 % (0.0-2.0); EOSINOPHILS # 0.2 10^3/ul (0.0-0.5); EOSINOPHILS % 1.9 % (0.0-7.0); HEMATOCRIT 30.5 % (37.0-47.0); HEMOGLOBIN 9.6 g/dl (12.0-16.0); LYMPHOCYTES # 1.3 10^3/ul (0.8-2.9); MEAN CORPUSCULAR HEMOGLOBIN 28.8 pg (29.0-33.0); MEAN CORPUSCULAR HGB CONC 31.5 g/dl (32.0-37.0); MEAN CORPUSCULAR VOLUME 91.6 fl (82.0-101.0); MEAN PLATELET VOLUME 9.9 fl (7.4-10.4); MONOCYTE # 0.8 10^3/ul (0.3-0.9); MONOCYTES % 7.6 % (0.0-11.0); NEUTROPHIL # 8.1 10^3/ul (1.6-7.5); NEUTROPHILS % 76.8 % (39.0-77.0); PLATELET COUNT 406 10^3/UL (140-415); RED BLOOD COUNT 3.33 10^6/ul (4.20-5.40); RED CELL DISTRIBUTION WIDTH 14.7 % (11.5-14.5)
[2017-06-01 06:30] LABS: WHITE BLOOD COUNT 10.5 10^3/ul (4.8-10.8)
[2017-06-01 06:52] LABS: IRON 31 ug/dl (35-150)
[2017-06-01 07:01] LABS: % IRON SATURATION 15 % SAT (22-52); TOTAL IRON BINDING CAPACITY 213 ug/dl (241-421)
[2017-06-01 07:23] LABS: ANION GAP 12 (8-16); BLOOD UREA NITROGEN 31 mg/dl (7-20); CALCIUM 9.7 mg/dl (8.4-10.2); CARBON DIOXIDE 31 mmol/L (21-31); CHLORIDE 106 mmol/L (97-110); CREATININE 1.29 mg/dl (0.44-1.00); GLUCOSE 129 mg/dl (70-220); POTASSIUM 4.7 mmol/L (3.5-5.1); SODIUM 144 mmol/L (135-144)
[2017-06-01] MEDS: INSULIN ASPART [NOVOLOG] 3 ML PEN SC ×4 (08:01→20:53)
[2017-06-01] MEDS: LORATADINE 10 MG TAB PO (08:35)
[2017-06-01] MEDS: PREGABALIN 25 MG CAP PO ×2 (08:36→20:47)
[2017-06-01] MEDS: DULOXETINE 30 MG CAP DR PO ×2 (08:36→20:46)
[2017-06-01] MEDS: ATENOLOL 25 MG TAB PO (08:36)
[2017-06-01] MEDS: MAGNESIUM OXIDE 400 MG TAB PO ×2 (08:39→20:47)
[2017-06-01] MEDS: COLLAGENASE 30 GM TUBE TOP (09:00)
[2017-06-01] MEDS: SOD FERRIC GLUC COMPLX 125 MG in SOD CHLORIDE 0.9% 100 ML IVPB (18:43)
[2017-06-01] MEDS: ATORVASTATIN 10 MG TAB PO (20:47)
[2017-06-02] MEDS: LACTULOSE 30ML CUP PO ×4 (01:00→12:43)
[2017-06-02] MEDS: ACCU-CHEK XX (02:00)
[2017-06-02 06:25] LABS: ADD MAN DIFF? NO
[2017-06-02 06:30] LABS: WHITE BLOOD COUNT 7.7 10^3/ul (4.8-10.8)
[2017-06-02 06:30] LABS: BASOPHIL # 0.1 10^3/ul (0.0-0.1); BASOPHILS % 1.7 % (0.0-2.0); EOSINOPHILS # 0.2 10^3/ul (0.0-0.5); HEMATOCRIT 26.9 % (37.0-47.0); HEMOGLOBIN 8.5 g/dl (12.0-16.0); LYMPHOCYTES # 1.5 10^3/ul (0.8-2.9); MEAN CORPUSCULAR HEMOGLOBIN 28.8 pg (29.0-33.0); MEAN CORPUSCULAR HGB CONC 31.6 g/dl (32.0-37.0); MEAN CORPUSCULAR VOLUME 91.2 fl (82.0-101.0); MEAN PLATELET VOLUME 10.3 fl (7.4-10.4); MONOCYTE # 0.7 10^3/ul (0.3-0.9); MONOCYTES % 8.8 % (0.0-11.0); NEUTROPHIL # 5.2 10^3/ul (1.6-7.5); NEUTROPHILS % 67.4 % (39.0-77.0); PLATELET COUNT 368 10^3/UL (140-415); RED BLOOD COUNT 2.95 10^6/ul (4.20-5.40)
[2017-06-02] MEDS: INSULIN ASPART [NOVOLOG] 3 ML PEN SC ×2 (08:05→11:52)
[2017-06-02] MEDS: DULOXETINE 30 MG CAP DR PO (08:25)
[2017-06-02] MEDS: PREGABALIN 25 MG CAP PO (08:26)
[2017-06-02] MEDS: ATENOLOL 25 MG TAB PO (08:26)
[2017-06-02] MEDS: MAGNESIUM OXIDE 400 MG TAB PO (08:26)
[2017-06-02] MEDS: LORATADINE 10 MG TAB PO (08:26)
[2017-06-02] MEDS: COLLAGENASE 30 GM TUBE TOP (08:27)
[2017-06-02] MEDS ORDERED: SUCRALFATE 1 GM TAB PO (13:00)
[2017-06-02] MEDS ORDERED: SOD FERRIC GLUC COMPLX 125 MG in SOD CHLORIDE 0.9% 100 ML IVPB (17:00)
[2017-06-02] MEDS ORDERED: PREGABALIN 75 MG CAP PO (21:00)
[2017-06-03] MEDS ORDERED: PANTOPRAZOLE (EC) 40 MG TAB PO (06:00)
== END 2017-06-02 14:45 | disposition home or self-care (01) | DRG 668 ==
LOC: MS2 23:57 → E/R 14:56
PROC: 0TJ58ZZ Inspection of Kidney, Via Natural or Artificial Opening Endoscopic (ICD-10-PCS; principal; 2017-05-17 10:00)
PROC: 0T9B8ZX Drainage of Bladder, Via Natural or Artificial Opening Endoscopic, Diagnostic (ICD-10-PCS; 2017-05-17 10:00)
PROC: 0TBB8ZX Excision of Bladder, Via Natural or Artificial Opening Endoscopic, Diagnostic (ICD-10-PCS; 2017-05-17 10:00)
PROC: 0DB78ZX Excision of Stomach, Pylorus, Via Natural or Artificial Opening Endoscopic, Diagnostic (ICD-10-PCS; 2017-05-17 10:00)
PROC: 0DB98ZX Excision of Duodenum, Via Natural or Artificial Opening Endoscopic, Diagnostic (ICD-10-PCS; 2017-05-17 10:00)
PROC: 0DB48ZX Excision of Esophagogastric Junction, Via Natural or Artificial Opening Endoscopic, Diagnostic (ICD-10-PCS; 2017-05-17 10:00)
PROC: 0DJD8ZZ Inspection of Lower Intestinal Tract, Via Natural or Artificial Opening Endoscopic (ICD-10-PCS; 2017-05-17 10:00)
PROC: BT14YZZ Fluoroscopy of Kidneys, Ureters and Bladder using Other Contrast (ICD-10-PCS; 2017-05-17 10:00)
PROC: 0T9B80Z Drainage of Bladder with Drainage Device, Via Natural or Artificial Opening Endoscopic (ICD-10-PCS; 2017-05-17 10:00)
PROC: 30233N1 Transfusion of Nonautologous Red Blood Cells into Peripheral Vein, Percutaneous Approach (ICD-10-PCS; 2017-05-17 10:00)
DX: N17.9 Acute kidney failure, unspecified (principal); K26.0 Acute duodenal ulcer with hemorrhage; E11.40 Type 2 diabetes mellitus with diabetic neuropathy, unspecified; E11.622 Type 2 diabetes mellitus with other skin ulcer; K25.0 Acute gastric ulcer with hemorrhage; L97.919 Non-pressure chronic ulcer of unspecified part of right lower leg with unspecified severity; N39.0 Urinary tract infection, site not specified; E87.5 Hyperkalemia; N28.1 Cyst of kidney, acquired; E86.0 Dehydration; E78.5 Hyperlipidemia, unspecified; D50.9 Iron deficiency anemia, unspecified; I10 Essential (primary) hypertension; I49.9 Cardiac arrhythmia, unspecified; K44.9 Diaphragmatic hernia without obstruction or gangrene; K21.0 Gastro-esophageal reflux disease with esophagitis; K57.30 Diverticulosis of large intestine without perforation or abscess without bleeding; K64.4 Residual hemorrhoidal skin tags; M48.062 Spinal stenosis, lumbar region with neurogenic claudication; N81.10 Cystocele, unspecified; B96.4 Proteus (mirabilis) (morganii) as the cause of diseases classified elsewhere; R31.0 Gross hematuria; R63.4 Abnormal weight loss; Q62.5 Duplication of ureter; Q40.2 Other specified congenital malformations of stomach; Z68.22 Body mass index [BMI] 22.0-22.9, adult; Z79.84 Long term (current) use of oral hypoglycemic drugs
CPT/HCPCS: 36430; 71045; 71250; 74176; 74430; 76775; 80048; 80053; 80061; 81001; 82043; 82270; 82728; 82962; 83036; 83540; 83605; 83690; 83735; 83930; 83935; 84300; 84436; 84439; 84443; 84481; 85025; 85610; 85730; 86850; 86900; 86901; 86920; 87086; 88104; 88305; 88312; 88313; 93005; 93306; 96361; 96374; 97116; 97163; 97530; 99285-25

== ENCOUNTER 2018-10-12 16:56 | Inpatient (IN) | payer OTHER, MEDICARE ==
[2018-10-12] MEDS: SOD CHLORIDE 0.9% 1,000 ML IV (18:17)
[2018-10-12 18:25] LABS: ADD MAN DIFF? NO
[2018-10-12 18:26] LABS: BASOPHIL # 0.1 10^3/ul (0.0-0.1); BASOPHILS % 1.3 % (0.0-2.0); EOSINOPHILS # 0.1 10^3/ul (0.0-0.5); EOSINOPHILS % 0.8 % (0.0-7.0); HEMATOCRIT 37.8 % (37.0-47.0); HEMOGLOBIN 12.2 g/dl (12.0-16.0); LYMPHOCYTES # 1.7 10^3/ul (0.8-2.9); LYMPHOCYTES % 17.5 % (15.0-51.0); MEAN CORPUSCULAR HGB CONC 32.3 g/dl (32.0-37.0); MEAN PLATELET VOLUME 10.1 fl (7.4-10.4); MONOCYTE # 0.5 10^3/ul (0.3-0.9); MONOCYTES % 5.7 % (0.0-11.0); NEUTROPHIL # 7.1 10^3/ul (1.6-7.5); NEUTROPHILS % 74.3 % (39.0-77.0); PLATELET COUNT 403 10^3/UL (140-415)
[2018-10-12 18:26] LABS: WHITE BLOOD COUNT 9.5 10^3/ul (4.8-10.8)
[2018-10-12 18:35] LABS: ADD UMIC YES; UR ASCORBIC ACID NEGATIVE (NEGATIVE); UR BACTERIA FEW /HPF (NONE SEEN); UR BILIRUBIN (Dip) 2+ mg/dL (NEGATIVE); UR BLOOD (Dip) NEGATIVE (NEGATIVE); UR CLARITY CLOUDY (CLEAR); UR COLOR YELLOW (YELLOW); UR GLUCOSE (Dip) NEGATIVE (NEGATIVE); UR KETONES (Dip) NEGATIVE (NEGATIVE); UR LEUKOCYTE ESTERASE (Dip) TRACE Leu/ul (NEGATIVE); UR MUCUS FEW /HPF (NONE SEEN); UR NITRITE (Dip) NEGATIVE (NEGATIVE); UR RBC 1 /HPF (0-5); UR SPECIFIC GRAVITY (Dip) 1.021 (1.003-1.030); UR SQUAMOUS EPITHELIAL CELL MODERATE /HPF (FEW); UR TOTAL PROTEIN (Dip) NEGATIVE (NEGATIVE); UR UROBILINOGEN (Dip) NEGATIVE (NEGATIVE); UR WBC 5 /HPF (0-5)
[2018-10-12 19:10] LABS: ALANINE AMINOTRANSFERASE 12 IU/L (13-69); ALBUMIN 4.5 g/dl (3.3-4.9); ALBUMIN/GLOBULIN RATIO 1.18; ALKALINE PHOSPHATASE 97 IU/L (42-121); ANION GAP 14 (5-13); ASPARTATE AMINO TRANSFERASE 16 IU/L (15-46); BILIRUBIN,INDIRECT 0.2 mg/dl (0-1.1); BILIRUBIN,TOTAL 0.2 mg/dl (0.2-1.3); BLOOD UREA NITROGEN 44 mg/dl (7-20); CALCIUM 10.5 mg/dl (8.4-10.2); CARBON DIOXIDE 25 mmol/L (21-31); CHLORIDE 105 mmol/L (97-110); CREATININE 2.28 mg/dl (0.44-1.00); GLUCOSE 146 mg/dl (70-220); POTASSIUM 5.5 mmol/L (3.5-5.1); SODIUM 144 mmol/L (135-144); TOTAL PROTEIN 8.3 g/dl (6.1-8.1)
[2018-10-12 19:21] LABS: TROPONIN-I < 0.012 ng/ml (0.000-0.120)
[2018-10-12] MEDS ORDERED: ACETAMINOPHEN 325 MG TAB PO ×2 (20:00→22:30)
[2018-10-12] MEDS ORDERED: ONDANSETRON 4 MG INJ IV ×2 (20:00→22:30)
[2018-10-12 20:44] LABS: DIGOXIN 3.8 ng/ml (1.0-2.0)
[2018-10-12] MEDS ORDERED: NACL 0.9% 3 ML SYG IV (22:30)
[2018-10-12] MEDS ORDERED: NITROGLYCERIN (SL) 0.4 MG TAB SL (22:30)
[2018-10-12] MEDS ORDERED: MAGNESIUM HYDROXIDE 30ML CUP PO (22:30)
[2018-10-12] MEDS ORDERED: CARISOPRODOL 350 MG TAB PO (22:30)
[2018-10-12] MEDS ORDERED: BISACODYL 10 MG SUPP PR (22:30)
[2018-10-13 06:19] LABS: ADD MAN DIFF? NO
[2018-10-13 06:32] LABS: WHITE BLOOD COUNT 7.2 10^3/ul (4.8-10.8)
[2018-10-13 06:32] LABS: BASOPHIL # 0.1 10^3/ul (0.0-0.1); BASOPHILS % 1.7 % (0.0-2.0); EOSINOPHILS # 0.1 10^3/ul (0.0-0.5); EOSINOPHILS % 1.9 % (0.0-7.0); HEMOGLOBIN 11.1 g/dl (12.0-16.0); LYMPHOCYTES # 1.8 10^3/ul (0.8-2.9); MEAN CORPUSCULAR HEMOGLOBIN 28.9 pg (29.0-33.0); MEAN CORPUSCULAR HGB CONC 32.6 g/dl (32.0-37.0); MEAN CORPUSCULAR VOLUME 88.5 fl (82.0-101.0); MEAN PLATELET VOLUME 10.2 fl (7.4-10.4); MONOCYTE # 0.7 10^3/ul (0.3-0.9); MONOCYTES % 9.5 % (0.0-11.0); NEUTROPHIL # 4.5 10^3/ul (1.6-7.5); NEUTROPHILS % 61.6 % (39.0-77.0); PLATELET COUNT 324 10^3/UL (140-415); RED BLOOD COUNT 3.84 10^6/ul (4.20-5.40)
[2018-10-13] MEDS: PANTOPRAZOLE (EC) 40 MG TAB PO (06:45)
[2018-10-13] MEDS: SOD CHLORIDE 0.9% 1,000 ML IV ×4 (06:45→17:59)
[2018-10-13] MEDS: LEVOFLOXACIN 500 MG TAB PO (06:45)
[2018-10-13 06:48] LABS: ALANINE AMINOTRANSFERASE 12 IU/L (13-69); ALBUMIN 3.9 g/dl (3.3-4.9); ALBUMIN/GLOBULIN RATIO 1.21; ALKALINE PHOSPHATASE 74 IU/L (42-121); ANION GAP 9 (5-13); ASPARTATE AMINO TRANSFERASE 17 IU/L (15-46); BILIRUBIN,INDIRECT 0.3 mg/dl (0-1.1); BILIRUBIN,TOTAL 0.3 mg/dl (0.2-1.3); BLOOD UREA NITROGEN 38 mg/dl (7-20); CALCIUM 9.9 mg/dl (8.4-10.2); CARBON DIOXIDE 26 mmol/L (21-31); CHLORIDE 110 mmol/L (97-110); CHOL/HDL RATIO 3.1 RATIO; CHOLESTEROL 126 mg/dl (100-200); GLUCOSE 95 mg/dl (70-220); HDL CHOLESTEROL 40 mg/dl (33-92); LDL CHOLESTEROL,CALCULATED 52 mg/dl; MAGNESIUM 1.4 mg/dl (1.7-2.5); POTASSIUM 5.1 mmol/L (3.5-5.1); SODIUM 145 mmol/L (135-144); TOTAL PROTEIN 7.1 g/dl (6.1-8.1); TRIGLYCERIDES 168 mg/dl (0-149)
[2018-10-13 07:09] LABS: DIGOXIN 3.8 ng/ml (1.0-2.0)
[2018-10-13] MEDS ORDERED: GLUCOSE GEL 15 GRAM TUBE BUCCAL (08:00)
[2018-10-13] MEDS ORDERED: GLUCAGON 1 MG INJ IM (08:00)
[2018-10-13] MEDS ORDERED: DEXTROSE 50% 50 ML SYRINGE IV ×2 (08:00)
[2018-10-13] MEDS: INSULIN ASPART [NOVOLOG] 3 ML PEN SC ×4 (08:00→20:39)
[2018-10-13] MEDS ORDERED: GLUCOSE GEL 15 GRAM TUBE PO ×2 (08:00)
[2018-10-13] MEDS: MAGNESIUM SULFATE 2 GM/50 ML 50 ML IVPB (08:06)
[2018-10-13 08:16] LABS: HEMOGLOBIN A1C 5.2 % (0-5.9)
[2018-10-13] MEDS: HEPARIN 5,000 UNIT/1 ML VIAL SC ×2 (08:32→20:46)
[2018-10-13] MEDS: LINAGLIPTIN 5 MG TABLET PO (08:33)
[2018-10-13] MEDS: LORATADINE 10 MG TAB PO (08:33)
[2018-10-13] MEDS: AMLODIPINE 2.5 MG TAB PO ×2 (08:34→20:33)
[2018-10-13] MEDS: LOSARTAN 50 MG TAB PO (08:34)
[2018-10-13] MEDS: DULOXETINE 30 MG CAP DR PO ×2 (08:34→20:32)
[2018-10-13] MEDS: PREGABALIN 75 MG CAP PO ×2 (08:35→20:32)
[2018-10-13] MEDS ORDERED: LEVOFLOXACIN 500 MG TAB PO (09:00)
[2018-10-13] MEDS: FLUTICASONE 0.05% 16 GM NAS SPRAY NASAL (10:00)
[2018-10-13] MEDS: ATORVASTATIN 10 MG TAB PO (20:32)
[2018-10-14] MEDS: SOD CHLORIDE 0.9% 1,000 ML IV ×2 (03:32→14:40)
[2018-10-14] MEDS: LEVOFLOXACIN 250 MG TAB PO (05:08)
[2018-10-14] MEDS: PANTOPRAZOLE (EC) 40 MG TAB PO ×2 (05:08→08:15)
[2018-10-14 06:03] LABS: ADD MAN DIFF? NO
[2018-10-14 06:12] LABS: WHITE BLOOD COUNT 6.6 10^3/ul (4.8-10.8)
[2018-10-14 06:12] LABS: BASOPHIL # 0.1 10^3/ul (0.0-0.1); BASOPHILS % 1.4 % (0.0-2.0); EOSINOPHILS # 0.2 10^3/ul (0.0-0.5); EOSINOPHILS % 2.9 % (0.0-7.0); HEMATOCRIT 32.6 % (37.0-47.0); HEMOGLOBIN 10.5 g/dl (12.0-16.0); LYMPHOCYTES # 1.5 10^3/ul (0.8-2.9); LYMPHOCYTES % 22.2 % (15.0-51.0); MEAN CORPUSCULAR HEMOGLOBIN 28.4 pg (29.0-33.0); MEAN CORPUSCULAR HGB CONC 32.2 g/dl (32.0-37.0); MEAN CORPUSCULAR VOLUME 88.1 fl (82.0-101.0); MEAN PLATELET VOLUME 10.2 fl (7.4-10.4); MONOCYTE # 0.6 10^3/ul (0.3-0.9); MONOCYTES % 9.4 % (0.0-11.0); NEUTROPHIL # 4.2 10^3/ul (1.6-7.5); NEUTROPHILS % 63.8 % (39.0-77.0); PLATELET COUNT 286 10^3/UL (140-415); RED CELL DISTRIBUTION WIDTH 14.3 % (11.5-14.5)
[2018-10-14 06:35] LABS: ANION GAP 7 (5-13); BLOOD UREA NITROGEN 26 mg/dl (7-20); CALCIUM 9.5 mg/dl (8.4-10.2); CARBON DIOXIDE 25 mmol/L (21-31); CHLORIDE 113 mmol/L (97-110); CREATININE 1.15 mg/dl (0.44-1.00); GLUCOSE 99 mg/dl (70-220); POTASSIUM 4.9 mmol/L (3.5-5.1); SODIUM 145 mmol/L (135-144)
[2018-10-14 06:39] LABS: MAGNESIUM 1.5 mg/dl (1.7-2.5)
[2018-10-14 07:02] LABS: DIGOXIN 2.1 ng/ml (1.0-2.0)
[2018-10-14] MEDS: INSULIN ASPART [NOVOLOG] 3 ML PEN SC ×4 (07:55→20:38)
[2018-10-14] MEDS: LORATADINE 10 MG TAB PO (08:14)
[2018-10-14] MEDS: FLUTICASONE 0.05% 16 GM NAS SPRAY NASAL (08:14)
[2018-10-14] MEDS: PREGABALIN 75 MG CAP PO ×2 (08:14→20:29)
[2018-10-14] MEDS: DULOXETINE 30 MG CAP DR PO ×2 (08:15→20:29)
[2018-10-14] MEDS: AMLODIPINE 2.5 MG TAB PO ×2 (08:15→20:30)
[2018-10-14] MEDS: LINAGLIPTIN 5 MG TABLET PO (08:16)
[2018-10-14] MEDS: HEPARIN 5,000 UNIT/1 ML VIAL SC ×2 (08:28→20:38)
[2018-10-14] MEDS: MAGNESIUM SULFATE 4 GM/100 ML 100 ML IVPB (11:33)
[2018-10-14] MEDS: ATORVASTATIN 10 MG TAB PO (20:30)
[2018-10-15] MEDS: SOD CHLORIDE 0.9% 1,000 ML IV ×3 (00:54→14:51)
[2018-10-15] MEDS: LEVOFLOXACIN 250 MG TAB PO (05:17)
[2018-10-15 06:22] LABS: ADD MAN DIFF? NO
[2018-10-15 06:26] LABS: BASOPHIL # 0.1 10^3/ul (0.0-0.1); BASOPHILS % 1.5 % (0.0-2.0); EOSINOPHILS # 0.2 10^3/ul (0.0-0.5); HEMATOCRIT 31.1 % (37.0-47.0); LYMPHOCYTES # 1.5 10^3/ul (0.8-2.9); LYMPHOCYTES % 22.3 % (15.0-51.0); MEAN CORPUSCULAR HEMOGLOBIN 28.6 pg (29.0-33.0); MEAN CORPUSCULAR HGB CONC 32.2 g/dl (32.0-37.0); MEAN CORPUSCULAR VOLUME 88.9 fl (82.0-101.0); MEAN PLATELET VOLUME 10.3 fl (7.4-10.4); MONOCYTE # 0.6 10^3/ul (0.3-0.9); MONOCYTES % 8.7 % (0.0-11.0); NEUTROPHIL # 4.3 10^3/ul (1.6-7.5); NEUTROPHILS % 64.2 % (39.0-77.0); PLATELET COUNT 285 10^3/UL (140-415); RED CELL DISTRIBUTION WIDTH 14.6 % (11.5-14.5)
[2018-10-15 06:26] LABS: WHITE BLOOD COUNT 6.6 10^3/ul (4.8-10.8)
[2018-10-15 06:47] LABS: ANION GAP 5 (5-13); BLOOD UREA NITROGEN 23 mg/dl (7-20); CALCIUM 9.4 mg/dl (8.4-10.2); CARBON DIOXIDE 25 mmol/L (21-31); CHLORIDE 113 mmol/L (97-110); CREATININE 1.27 mg/dl (0.44-1.00); GLUCOSE 102 mg/dl (70-220); POTASSIUM 4.8 mmol/L (3.5-5.1); SODIUM 143 mmol/L (135-144)
[2018-10-15 07:00] LABS: DIGOXIN 1.3 ng/ml (1.0-2.0)
[2018-10-15] MEDS: INSULIN ASPART [NOVOLOG] 3 ML PEN SC ×4 (07:55→20:59)
[2018-10-15 08:05] LABS: MAGNESIUM 1.7 mg/dl (1.7-2.5)
[2018-10-15] MEDS: LINAGLIPTIN 5 MG TABLET PO (08:36)
[2018-10-15] MEDS: LORATADINE 10 MG TAB PO (08:36)
[2018-10-15] MEDS: AMLODIPINE 2.5 MG TAB PO ×2 (08:37→20:45)
[2018-10-15] MEDS: PREGABALIN 75 MG CAP PO ×2 (08:37→20:45)
[2018-10-15] MEDS: HEPARIN 5,000 UNIT/1 ML VIAL SC ×2 (08:43→20:58)
[2018-10-15] MEDS: FLUTICASONE 0.05% 16 GM NAS SPRAY NASAL (08:44)
[2018-10-15] MEDS: DULOXETINE 30 MG CAP DR PO ×2 (10:33→20:45)
[2018-10-15] MEDS: OXYBUTYNIN (XL) 5 MG TAB PO (15:10)
[2018-10-15] MEDS: MAGNESIUM SULFATE 2 GM/50 ML 50 ML IVPB (18:47)
[2018-10-15] MEDS: ATORVASTATIN 10 MG TAB PO (20:45)
[2018-10-15] MEDS: METOPROLOL (XL) 25 MG TAB PO (20:46)
[2018-10-16] MEDS: LEVOFLOXACIN 250 MG TAB PO (05:08)
[2018-10-16] MEDS: INSULIN ASPART [NOVOLOG] 3 ML PEN SC ×4 (07:55→21:00)
[2018-10-16] MEDS: LORATADINE 10 MG TAB PO (08:14)
[2018-10-16] MEDS: PANTOPRAZOLE (EC) 40 MG TAB PO (08:14)
[2018-10-16] MEDS: AMLODIPINE 2.5 MG TAB PO ×2 (08:14→21:32)
[2018-10-16] MEDS: DULOXETINE 30 MG CAP DR PO ×2 (08:14→21:31)
[2018-10-16] MEDS: LINAGLIPTIN 5 MG TABLET PO (08:14)
[2018-10-16] MEDS: FLUTICASONE 0.05% 16 GM NAS SPRAY NASAL (08:15)
[2018-10-16] MEDS: PREGABALIN 75 MG CAP PO ×2 (08:15→21:31)
[2018-10-16] MEDS: METOPROLOL (XL) 25 MG TAB PO (08:15)
[2018-10-16] MEDS: HEPARIN 5,000 UNIT/1 ML VIAL SC ×2 (08:38→21:41)
[2018-10-16] MEDS: OXYBUTYNIN (XL) 5 MG TAB PO (09:19)
[2018-10-16] MEDS: LOSARTAN 50 MG TAB PO (13:13)
[2018-10-16 15:31] LABS: ADD MAN DIFF? NO
[2018-10-16 15:34] LABS: BASOPHIL # 0.1 10^3/ul (0.0-0.1); BASOPHILS % 1.4 % (0.0-2.0); EOSINOPHILS # 0.2 10^3/ul (0.0-0.5); EOSINOPHILS % 3.3 % (0.0-7.0); HEMOGLOBIN 9.5 g/dl (12.0-16.0); LYMPHOCYTES # 1.3 10^3/ul (0.8-2.9); LYMPHOCYTES % 17.7 % (15.0-51.0); MEAN CORPUSCULAR HEMOGLOBIN 29.1 pg (29.0-33.0); MEAN CORPUSCULAR HGB CONC 32.8 g/dl (32.0-37.0); MEAN CORPUSCULAR VOLUME 88.7 fl (82.0-101.0); MEAN PLATELET VOLUME 10.6 fl (7.4-10.4); MONOCYTE # 0.9 10^3/ul (0.3-0.9); MONOCYTES % 12.7 % (0.0-11.0); NEUTROPHIL # 4.7 10^3/ul (1.6-7.5); NEUTROPHILS % 64.4 % (39.0-77.0); PLATELET COUNT 271 10^3/UL (140-415); RED BLOOD COUNT 3.27 10^6/ul (4.20-5.40); RED CELL DISTRIBUTION WIDTH 14.4 % (11.5-14.5)
[2018-10-16 15:34] LABS: WHITE BLOOD COUNT 7.3 10^3/ul (4.8-10.8)
[2018-10-16 15:51] LABS: ANION GAP 7 (5-13); BLOOD UREA NITROGEN 22 mg/dl (7-20); CALCIUM 9.5 mg/dl (8.4-10.2); CARBON DIOXIDE 28 mmol/L (21-31); CHLORIDE 107 mmol/L (97-110); CREATININE 1.11 mg/dl (0.44-1.00); GLUCOSE 96 mg/dl (70-220); POTASSIUM 4.7 mmol/L (3.5-5.1); SODIUM 142 mmol/L (135-144)
[2018-10-16] MEDS: QUETIAPINE 25 MG TAB PO (21:31)
[2018-10-16] MEDS: ATORVASTATIN 10 MG TAB PO (21:31)
[2018-10-17] MEDS: LORAZEPAM 2 MG INJ IV (04:53)
[2018-10-17] MEDS: LEVOFLOXACIN 250 MG TAB PO (06:28)
[2018-10-17] MEDS: PANTOPRAZOLE (EC) 40 MG TAB PO (06:28)
[2018-10-17 07:33] LABS: ADD UMIC YES; UR ASCORBIC ACID NEGATIVE (NEGATIVE); UR BACTERIA FEW /HPF (NONE SEEN); UR BILIRUBIN (Dip) NEGATIVE (NEGATIVE); UR BLOOD (Dip) NEGATIVE (NEGATIVE); UR CLARITY CLEAR (CLEAR); UR COLOR STRAW (YELLOW); UR GLUCOSE (Dip) NEGATIVE (NEGATIVE); UR KETONES (Dip) NEGATIVE (NEGATIVE); UR LEUKOCYTE ESTERASE (Dip) TRACE Leu/ul (NEGATIVE); UR NITRITE (Dip) NEGATIVE (NEGATIVE); UR RBC 0 /HPF (0-5); UR SPECIFIC GRAVITY (Dip) 1.008 (1.003-1.030); UR SQUAMOUS EPITHELIAL CELL FEW /HPF (FEW); UR TOTAL PROTEIN (Dip) NEGATIVE (NEGATIVE); UR UROBILINOGEN (Dip) NEGATIVE (NEGATIVE); UR WBC 1 /HPF (0-5)
[2018-10-17] MEDS: INSULIN ASPART [NOVOLOG] 3 ML PEN SC ×4 (07:55→20:45)
[2018-10-17] MEDS: OXYBUTYNIN (XL) 5 MG TAB PO (08:17)
[2018-10-17] MEDS: LINAGLIPTIN 5 MG TABLET PO (08:17)
[2018-10-17] MEDS: DULOXETINE 30 MG CAP DR PO ×2 (08:18→23:27)
[2018-10-17] MEDS: LOSARTAN 50 MG TAB PO (08:18)
[2018-10-17] MEDS: PREGABALIN 75 MG CAP PO (08:18)
[2018-10-17] MEDS: LORATADINE 10 MG TAB PO (08:18)
[2018-10-17] MEDS: AMLODIPINE 2.5 MG TAB PO (08:19)
[2018-10-17] MEDS: METOPROLOL (XL) 25 MG TAB PO ×2 (08:19→18:32)
[2018-10-17] MEDS: FLUTICASONE 0.05% 16 GM NAS SPRAY NASAL (08:19)
[2018-10-17] MEDS: HEPARIN 5,000 UNIT/1 ML VIAL SC (08:28)
[2018-10-17] MEDS: QUETIAPINE 25 MG TAB PO (21:00)
[2018-10-17] MEDS: ATORVASTATIN 10 MG TAB PO (23:27)
[2018-10-17] MEDS: PREGABALIN 50 MG CAP PO (23:28)
[2018-10-18] MEDS: HEPARIN 5,000 UNIT/1 ML VIAL SC ×3 (00:20→21:48)
[2018-10-18] MEDS: LEVOFLOXACIN 250 MG TAB PO (05:55)
[2018-10-18 07:07] LABS: ADD MAN DIFF? NO
[2018-10-18 07:12] LABS: BASOPHIL # 0.1 10^3/ul (0.0-0.1); BASOPHILS % 0.8 % (0.0-2.0); EOSINOPHILS # 0.2 10^3/ul (0.0-0.5); EOSINOPHILS % 1.9 % (0.0-7.0); HEMATOCRIT 35.8 % (37.0-47.0); HEMOGLOBIN 11.3 g/dl (12.0-16.0); LYMPHOCYTES # 1.3 10^3/ul (0.8-2.9); LYMPHOCYTES % 15.7 % (15.0-51.0); MEAN CORPUSCULAR HEMOGLOBIN 28.4 pg (29.0-33.0); MEAN CORPUSCULAR HGB CONC 31.6 g/dl (32.0-37.0); MEAN CORPUSCULAR VOLUME 89.9 fl (82.0-101.0); MEAN PLATELET VOLUME 10.7 fl (7.4-10.4); MONOCYTE # 0.9 10^3/ul (0.3-0.9); MONOCYTES % 10.8 % (0.0-11.0); NEUTROPHILS % 70.4 % (39.0-77.0); PLATELET COUNT 314 10^3/UL (140-415); RED BLOOD COUNT 3.98 10^6/ul (4.20-5.40); RED CELL DISTRIBUTION WIDTH 14.6 % (11.5-14.5)
[2018-10-18 07:12] LABS: WHITE BLOOD COUNT 8.5 10^3/ul (4.8-10.8)
[2018-10-18 07:33] LABS: ANION GAP 8 (5-13); BLOOD UREA NITROGEN 21 mg/dl (7-20); CALCIUM 9.8 mg/dl (8.4-10.2); CARBON DIOXIDE 30 mmol/L (21-31); CHLORIDE 108 mmol/L (97-110); CREATININE 0.78 mg/dl (0.44-1.00); GLUCOSE 116 mg/dl (70-220); POTASSIUM 4.5 mmol/L (3.5-5.1); SODIUM 146 mmol/L (135-144)
[2018-10-18 07:34] LABS: MAGNESIUM 1.1 mg/dl (1.7-2.5)
[2018-10-18] MEDS: INSULIN ASPART [NOVOLOG] 3 ML PEN SC ×4 (07:37→21:00)
[2018-10-18] MEDS: HYDROCODONE/APAP (5/325) TAB PO ×2 (07:40→13:53)
[2018-10-18] MEDS: PANTOPRAZOLE (EC) 40 MG TAB PO (07:40)
[2018-10-18] MEDS: MAGNESIUM SULFATE 4 GM/100 ML 100 ML IVPB (09:26)
[2018-10-18] MEDS: LOSARTAN 50 MG TAB PO (09:31)
[2018-10-18] MEDS: DULOXETINE 30 MG CAP DR PO ×2 (09:31→21:35)
[2018-10-18] MEDS: FLUTICASONE 0.05% 16 GM NAS SPRAY NASAL (09:31)
[2018-10-18] MEDS: LORATADINE 10 MG TAB PO (09:31)
[2018-10-18] MEDS: LINAGLIPTIN 5 MG TABLET PO (09:31)
[2018-10-18] MEDS: METOPROLOL (XL) 50 MG TAB PO (09:37)
[2018-10-18] MEDS: PREGABALIN 50 MG CAP PO ×2 (10:59→17:16)
[2018-10-18] MEDS ORDERED: MAGNESIUM SULFATE 4 GM/100 ML 100 ML IVPB (13:00)
[2018-10-18] MEDS: OXYBUTYNIN (XL) 5 MG TAB PO (13:36)
[2018-10-18] MEDS: QUETIAPINE 25 MG TAB PO (21:36)
[2018-10-18] MEDS: ATORVASTATIN 10 MG TAB PO (21:36)
[2018-10-19] MEDS: LEVOFLOXACIN 250 MG TAB PO (05:47)
[2018-10-19 06:30] LABS: ADD MAN DIFF? NO
[2018-10-19 06:39] LABS: BASOPHIL # 0.1 10^3/ul (0.0-0.1); BASOPHILS % 0.6 % (0.0-2.0); EOSINOPHILS # 0.1 10^3/ul (0.0-0.5); EOSINOPHILS % 0.7 % (0.0-7.0); HEMATOCRIT 30.7 % (37.0-47.0); HEMOGLOBIN 9.6 g/dl (12.0-16.0); LYMPHOCYTES # 1.2 10^3/ul (0.8-2.9); LYMPHOCYTES % 11.8 % (15.0-51.0); MEAN CORPUSCULAR HEMOGLOBIN 28.7 pg (29.0-33.0); MEAN CORPUSCULAR HGB CONC 31.3 g/dl (32.0-37.0); MEAN CORPUSCULAR VOLUME 91.6 fl (82.0-101.0); MEAN PLATELET VOLUME 10.7 fl (7.4-10.4); MONOCYTE # 1.4 10^3/ul (0.3-0.9); MONOCYTES % 14.4 % (0.0-11.0); NEUTROPHILS % 72.1 % (39.0-77.0); PLATELET COUNT 279 10^3/UL (140-415); RED BLOOD COUNT 3.35 10^6/ul (4.20-5.40); RED CELL DISTRIBUTION WIDTH 14.6 % (11.5-14.5)
[2018-10-19 06:39] LABS: WHITE BLOOD COUNT 9.7 10^3/ul (4.8-10.8)
[2018-10-19 07:10] LABS: MAGNESIUM 2.1 mg/dl (1.7-2.5)
[2018-10-19 07:16] LABS: ANION GAP 10 (5-13); BLOOD UREA NITROGEN 45 mg/dl (7-20); CALCIUM 9.6 mg/dl (8.4-10.2); CARBON DIOXIDE 28 mmol/L (21-31); CHLORIDE 102 mmol/L (97-110); CREATININE 1.95 mg/dl (0.44-1.00); GLUCOSE 124 mg/dl (70-220); POTASSIUM 4.5 mmol/L (3.5-5.1); SODIUM 140 mmol/L (135-144)
[2018-10-19] MEDS: INSULIN ASPART [NOVOLOG] 3 ML PEN SC ×4 (07:55→20:17)
[2018-10-19] MEDS: METOPROLOL (XL) 50 MG TAB PO (09:00)
[2018-10-19] MEDS: HEPARIN 5,000 UNIT/1 ML VIAL SC ×2 (09:00→20:33)
[2018-10-19] MEDS: FLUTICASONE 0.05% 16 GM NAS SPRAY NASAL (09:00)
[2018-10-19] MEDS: PREGABALIN 50 MG CAP PO ×2 (09:00→20:16)
[2018-10-19] MEDS: LOSARTAN 25 MG TAB PO (09:00)
[2018-10-19] MEDS: DULOXETINE 30 MG CAP DR PO ×2 (09:59→20:17)
[2018-10-19] MEDS: PANTOPRAZOLE (EC) 40 MG TAB PO (10:00)
[2018-10-19] MEDS: LORATADINE 10 MG TAB PO (10:01)
[2018-10-19] MEDS: LINAGLIPTIN 5 MG TABLET PO (10:01)
[2018-10-19] MEDS: OXYBUTYNIN (XL) 5 MG TAB PO (10:02)
[2018-10-19] MEDS: HYDROCODONE/APAP (5/325) TAB PO (10:24)
[2018-10-19] MEDS: QUETIAPINE 25 MG TAB PO (20:16)
[2018-10-19] MEDS: ATORVASTATIN 10 MG TAB PO (20:17)
[2018-10-20] MEDS: PANTOPRAZOLE (EC) 40 MG TAB PO ×2 (06:20→08:38)
[2018-10-20] MEDS: INSULIN ASPART [NOVOLOG] 3 ML PEN SC ×4 (08:30→20:39)
[2018-10-20] MEDS: LOSARTAN 25 MG TAB PO (08:37)
[2018-10-20] MEDS: METOPROLOL (XL) 50 MG TAB PO (08:37)
[2018-10-20] MEDS: DULOXETINE 30 MG CAP DR PO ×2 (08:38→20:29)
[2018-10-20] MEDS: LORATADINE 10 MG TAB PO (08:38)
[2018-10-20] MEDS: LINAGLIPTIN 5 MG TABLET PO (08:38)
[2018-10-20] MEDS: HEPARIN 5,000 UNIT/1 ML VIAL SC ×2 (08:41→20:32)
[2018-10-20] MEDS: FLUTICASONE 0.05% 16 GM NAS SPRAY NASAL (09:37)
[2018-10-20] MEDS: OXYBUTYNIN (XL) 5 MG TAB PO (09:37)
[2018-10-20] MEDS: PREGABALIN 50 MG CAP PO ×2 (09:37→20:33)
[2018-10-20] MEDS: ATORVASTATIN 10 MG TAB PO (20:29)
[2018-10-20] MEDS: QUETIAPINE 25 MG TAB PO (20:29)
[2018-10-21] MEDS: PANTOPRAZOLE (EC) 40 MG TAB PO (06:30)
[2018-10-21] MEDS: INSULIN ASPART [NOVOLOG] 3 ML PEN SC ×4 (08:00→20:13)
[2018-10-21] MEDS: OXYBUTYNIN (XL) 5 MG TAB PO (08:16)
[2018-10-21] MEDS: FLUTICASONE 0.05% 16 GM NAS SPRAY NASAL (08:16)
[2018-10-21] MEDS: LINAGLIPTIN 5 MG TABLET PO (08:17)
[2018-10-21] MEDS: METOPROLOL (XL) 50 MG TAB PO (08:17)
[2018-10-21] MEDS: PREGABALIN 50 MG CAP PO ×2 (08:17→20:14)
[2018-10-21] MEDS: DULOXETINE 30 MG CAP DR PO ×2 (08:18→20:15)
[2018-10-21] MEDS: LOSARTAN 25 MG TAB PO (08:19)
[2018-10-21] MEDS: LORATADINE 10 MG TAB PO (08:19)
[2018-10-21] MEDS: HEPARIN 5,000 UNIT/1 ML VIAL SC ×2 (08:22→20:17)
[2018-10-21] MEDS: HYDROCODONE/APAP (5/325) TAB PO (12:36)
[2018-10-21] MEDS: QUETIAPINE 25 MG TAB PO (20:14)
[2018-10-21] MEDS: ATORVASTATIN 10 MG TAB PO (20:15)
[2018-10-22] MEDS: HYDROCODONE/APAP (5/325) TAB PO ×3 (03:29→20:42)
[2018-10-22 05:41] LABS: ADD MAN DIFF? NO
[2018-10-22 05:48] LABS: WHITE BLOOD COUNT 5.9 10^3/ul (4.8-10.8)
[2018-10-22 05:48] LABS: BASOPHIL # 0.1 10^3/ul (0.0-0.1); BASOPHILS % 1.2 % (0.0-2.0); EOSINOPHILS # 0.2 10^3/ul (0.0-0.5); EOSINOPHILS % 3.4 % (0.0-7.0); HEMATOCRIT 31.6 % (37.0-47.0); HEMOGLOBIN 9.7 g/dl (12.0-16.0); LYMPHOCYTES # 1.3 10^3/ul (0.8-2.9); LYMPHOCYTES % 21.9 % (15.0-51.0); MEAN CORPUSCULAR HEMOGLOBIN 28.6 pg (29.0-33.0); MEAN CORPUSCULAR HGB CONC 30.7 g/dl (32.0-37.0); MEAN CORPUSCULAR VOLUME 93.2 fl (82.0-101.0); MEAN PLATELET VOLUME 10.4 fl (7.4-10.4); MONOCYTE # 0.8 10^3/ul (0.3-0.9); MONOCYTES % 13.1 % (0.0-11.0); NEUTROPHIL # 3.6 10^3/ul (1.6-7.5); NEUTROPHILS % 60.1 % (39.0-77.0); PLATELET COUNT 301 10^3/UL (140-415); RED BLOOD COUNT 3.39 10^6/ul (4.20-5.40); RED CELL DISTRIBUTION WIDTH 14.5 % (11.5-14.5)
[2018-10-22] MEDS: DOCUSATE SODIUM 100 MG CAP PO (06:03)
[2018-10-22] MEDS: PANTOPRAZOLE (EC) 40 MG TAB PO (06:03)
[2018-10-22 06:17] LABS: ANION GAP 7 (5-13); BLOOD UREA NITROGEN 44 mg/dl (7-20); CALCIUM 10.2 mg/dl (8.4-10.2); CARBON DIOXIDE 31 mmol/L (21-31); CHLORIDE 105 mmol/L (97-110); CREATININE 1.41 mg/dl (0.44-1.00); GLUCOSE 122 mg/dl (70-220); POTASSIUM 5.3 mmol/L (3.5-5.1); SODIUM 143 mmol/L (135-144)
[2018-10-22] MEDS: INSULIN ASPART [NOVOLOG] 3 ML PEN SC ×4 (08:00→20:49)
[2018-10-22] MEDS: DULOXETINE 30 MG CAP DR PO ×2 (08:45→20:42)
[2018-10-22] MEDS: PREGABALIN 50 MG CAP PO ×2 (08:45→20:42)
[2018-10-22] MEDS: FLUTICASONE 0.05% 16 GM NAS SPRAY NASAL (08:46)
[2018-10-22] MEDS: LORATADINE 10 MG TAB PO (08:46)
[2018-10-22] MEDS: OXYBUTYNIN (XL) 5 MG TAB PO (08:47)
[2018-10-22] MEDS: METOPROLOL (XL) 50 MG TAB PO (08:47)
[2018-10-22] MEDS: LOSARTAN 25 MG TAB PO (08:47)
[2018-10-22] MEDS: LINAGLIPTIN 5 MG TABLET PO (08:48)
[2018-10-22] MEDS: HEPARIN 5,000 UNIT/1 ML VIAL SC ×2 (08:48→20:50)
[2018-10-22 08:53] LABS: MAGNESIUM 1.6 mg/dl (1.7-2.5)
[2018-10-22] MEDS: MAGNESIUM SULFATE 3 GM in DEXTROSE 5% 100 ML IVPB (18:24)
[2018-10-22] MEDS: QUETIAPINE 25 MG TAB PO (20:42)
[2018-10-22] MEDS: ATORVASTATIN 10 MG TAB PO (20:42)
[2018-10-23 05:42] LABS: MAGNESIUM 1.5 mg/dl (1.7-2.5)
[2018-10-23 05:44] LABS: ANION GAP 7 (5-13); BLOOD UREA NITROGEN 40 mg/dl (7-20); CALCIUM 10.1 mg/dl (8.4-10.2); CARBON DIOXIDE 33 mmol/L (21-31); CHLORIDE 104 mmol/L (97-110); CREATININE 1.23 mg/dl (0.44-1.00); GLUCOSE 117 mg/dl (70-220); SODIUM 144 mmol/L (135-144)
[2018-10-23] MEDS: PANTOPRAZOLE (EC) 40 MG TAB PO (06:16)
[2018-10-23] MEDS: INSULIN ASPART [NOVOLOG] 3 ML PEN SC ×4 (08:00→21:00)
[2018-10-23] MEDS: PREGABALIN 50 MG CAP PO ×2 (09:11→20:24)
[2018-10-23] MEDS: OXYBUTYNIN (XL) 5 MG TAB PO (09:11)
[2018-10-23] MEDS: LORATADINE 10 MG TAB PO (09:11)
[2018-10-23] MEDS: FLUTICASONE 0.05% 16 GM NAS SPRAY NASAL (09:11)
[2018-10-23] MEDS: HEPARIN 5,000 UNIT/1 ML VIAL SC ×2 (09:12→20:25)
[2018-10-23] MEDS: LINAGLIPTIN 5 MG TABLET PO (09:13)
[2018-10-23] MEDS: DULOXETINE 30 MG CAP DR PO ×2 (09:13→20:24)
[2018-10-23] MEDS: METOPROLOL (XL) 50 MG TAB PO (09:13)
[2018-10-23] MEDS: MAGNESIUM SULFATE 3 GM in DEXTROSE 5% 100 ML IVPB (09:14)
[2018-10-23] MEDS: HYDROCODONE/APAP (5/325) TAB PO (09:29)
[2018-10-23] MEDS: ATORVASTATIN 10 MG TAB PO (20:23)
[2018-10-23] MEDS: QUETIAPINE 25 MG TAB PO (20:24)
[2018-10-24] MEDS: PANTOPRAZOLE (EC) 40 MG TAB PO (06:05)
[2018-10-24 06:30] LABS: ANION GAP 9 (5-13); BLOOD UREA NITROGEN 32 mg/dl (7-20); CALCIUM 9.9 mg/dl (8.4-10.2); CARBON DIOXIDE 30 mmol/L (21-31); CHLORIDE 102 mmol/L (97-110); CREATININE 0.98 mg/dl (0.44-1.00); GLUCOSE 110 mg/dl (70-220); POTASSIUM 4.3 mmol/L (3.5-5.1); SODIUM 141 mmol/L (135-144)
[2018-10-24 06:39] LABS: MAGNESIUM 1.7 mg/dl (1.7-2.5)
[2018-10-24] MEDS: INSULIN ASPART [NOVOLOG] 3 ML PEN SC ×2 (08:00→12:00)
[2018-10-24] MEDS: LORATADINE 10 MG TAB PO (08:38)
[2018-10-24] MEDS: LINAGLIPTIN 5 MG TABLET PO (08:38)
[2018-10-24] MEDS: OXYBUTYNIN (XL) 5 MG TAB PO (08:38)
[2018-10-24] MEDS: PREGABALIN 50 MG CAP PO (08:38)
[2018-10-24] MEDS: METOPROLOL (XL) 50 MG TAB PO (08:38)
[2018-10-24] MEDS: FLUTICASONE 0.05% 16 GM NAS SPRAY NASAL (08:39)
[2018-10-24] MEDS: DULOXETINE 30 MG CAP DR PO (08:39)
[2018-10-24] MEDS: HEPARIN 5,000 UNIT/1 ML VIAL SC (08:41)
[2018-10-24] MEDS: HYDROCODONE/APAP (5/325) TAB PO (13:41)
== END 2018-10-24 14:00 | DRG 918 ==
LOC: TEL 19:44 → 5EC 10-20 02:20 → E/R 16:56
PROVIDERS: Internal Medicine
DX: T46.0X1A Poisoning by cardiac-stimulant glycosides and drugs of similar action, accidental (unintentional), initial encounter (principal); N17.9 Acute kidney failure, unspecified; F33.3 Major depressive disorder, recurrent, severe with psychotic symptoms; R29.6 Repeated falls; R53.1 Weakness; R41.82 Altered mental status, unspecified; R44.1 Visual hallucinations; E11.22 Type 2 diabetes mellitus with diabetic chronic kidney disease; E86.0 Dehydration; E87.5 Hyperkalemia; E83.52 Hypercalcemia; E78.5 Hyperlipidemia, unspecified; E83.42 Hypomagnesemia; E11.42 Type 2 diabetes mellitus with diabetic polyneuropathy; I12.9 Hypertensive chronic kidney disease with stage 1 through stage 4 chronic kidney disease, or unspecified chronic kidney disease; J30.9 Allergic rhinitis, unspecified; J01.00 Acute maxillary sinusitis, unspecified; M48.062 Spinal stenosis, lumbar region with neurogenic claudication; M54.16 Radiculopathy, lumbar region; N18.3 Chronic kidney disease, stage 3 (moderate); N28.9 Disorder of kidney and ureter, unspecified; N39.41 Urge incontinence; S49.92XA Unspecified injury of left shoulder and upper arm, initial encounter; W18.30XA Fall on same level, unspecified, initial encounter; Y92.009 Unspecified place in unspecified non-institutional (private) residence as the place of occurrence of the external cause; Z79.84 Long term (current) use of oral hypoglycemic drugs
CPT/HCPCS: 36415; 70450; 71045; 73060; 80048; 80053; 80061; 80162; 81001; 82962; 83036; 83735; 84443; 84484; 85025; 93005; 93306; 97110; 97116; 97162; 97530; 99285-25